=== PATIENT | female | born 1935 | race Caucasian/White ===

== ENCOUNTER 2020-02-05 18:04 | Emergency (ER) | payer MEDICARE, SELFPAY ==
[2020-02-05] VITALS (33 sets, daily range): BP systolic 110–167; BP diastolic 47–120; PULSE 67–86; RESP 12–31; TEMP 36.8; O2SAT 94–100
--- NOTE | ~2020-02-05 | CT_ITS ---
EXAMINATION: CT brain wo con DATE: 02/05/2020 19:01 INDICATION: Head injury TECHNIQUE: Computed tomography (CT) of the head was performed without intravenous contrast. The dose- length product was 605.33 mGy-cm. The mA was adjusted according to patient size. Iterative reconstruc tion technique was employed. COMPARISON: None FINDINGS: Generalized atrophy. There are scattered moderate periventricular and subcortical white mat ter changes, most likely related to small vessel ischemic disease (microangiopathy). No midline shift . Basilar cisterns are patent. There is intracranial atherosclerosis. Paranasal sinuses and mastoids are pneumatized. No depressed skull fractures. No acute intracranial hemorrhage or infarction. IMPRESSION: 1. No acute intracranial abnormality. 2: Chronic age-related findings. Reviewed, dictated and finalized at location A. ELLA FRAME MAKER
--- NOTE | ~2020-02-05 | CT_ITS ---
EXAMINATION: CT cervical spine wo con DATE: 02/05/2020 19:01 INDICATION: Neck pain after fall TECHNIQUE: Computed tomography (CT) of the cervical spine was performed without intravenous contrast. The dose-length product was 292.35 mGy-cm. Automated exposure control and iterative reconstruction t echnique were employed. COMPARISON: None FINDINGS: Normal cervical alignment. There is disc narrowing and endplate degenerative change at all cervical spine levels. Odontoid process within normal limits. There is moderate multilevel uncinate a nd facet hypertrophy. Lung apices are unremarkable. IMPRESSION: 1. No acute abnormality of the cervical spine. 2: Moderate-severe cervical spondylosis. Reviewed, dictated and finalized at location A. IFICATION OFFICER
--- NOTE | ~2020-02-05 | XR_ITS ---
XR chest 2V 02/05/2020 18:51 Indication: Syncope. Hypertension. Procedure: AP view of the chest Comparison: No prior studies for comparison. Findings: Heart size normal. Pacemaker leads are in expected position. No focal air space disease, pu lmonary edema, pleural effusion or suspected pneumothorax. Calcified granulomas right mid thorax. Impression: 1: No acute cardiopulmonary disease. Reviewed, dictated and finalized at location A. UNITY RELATIONS POLICE LIEUTENANT Impression: 1: No acute cardiopulmonary disease.
--- NOTE | 2020-02-05 18:08 | ECG_ITS ---
Measurements Intervals [place] Rate: 72 P: 121 NE: 214 QRS: -73 QRSD: 178 T: 71 QT: 474 QTc: 520 Interpretive Statements ELECTRONIC ATRIAL PACEMAKER ELECTRONIC VENTRICULAR PACEMAKER BASELINE ARTIFACT- I, II, AVR, AVL, AVF NO FURTHER INTERPRETATION IS POSSIBLE ATYPICAL ECG Electronically Signed On 02-06-2020 7:27:02 DINING ROOM BUSSER by Danny Peter D.O.
[2020-02-05 18:19] LABS: Basophils Percent Auto 0.7 % (0.2-1.2); Eosinophils Absolute Auto 0.3 K/mm3 (0-0.3); Hematocrit 44.6 % (37.0-47.0); Hemoglobin 14.8 g/dL (12.0-15.0); Immature Granulocyte Absolute 0.02 K/mm3 (0.00-0.031); Immature Granulocyte Percent A 0.5 % (0-0.5); Lymphocytes Absolute Auto 1.28 K/mm3 (0.9-3.2); Mean Corpuscular HGB Conc 33.2 g/dl (32-36); Mean Corpuscular Hemoglobin 31.2 pg (26-34); Mean Corpuscular Volume 94.1 fl (80-100); Mean Platelet Volume 10.4 fl (7.4-10.4); Monocytes Absolute Auto 0.4 K/mm3 (0.1-0.6); Monocytes Percent Auto 9.7 % (2.6-8.5); Neutrophils Absolute Auto 2.1 K/mm3 (1.3-6.7); Neutrophils Percent Auto 51.1 % (45.5-73.1); Platelet Count Result 176 k/mm3 (150-375); Red Blood Count 4.74 M/mm3 (4.2-5.4); Red Cell Distribution Width 14.2 % (11.5-14.5); White Blood Count 4.1 K/mm3 (4.5-10.0)
[2020-02-05 18:31] LABS: Anion Gap 6 mmol/L (8-16); Blood Urea Nitrogen 15 mg/dL (7-17); Calcium 9.9 mg/dL (8.4-10.2); Carbon Dioxide 30 mmol/L (22-30); Chloride 103 mmol/L (98-107); Estimated Glomerular Filt Rate 53; Glucose 142 mg/dL (65-105); Potassium 4.1 mmol/L (3.4-5.0); Sodium 139 mmol/L (137-145)
--- NOTE | 2020-02-05 18:31 | ED.FALL ---
HPI - Fall General Chief Complaint: Syncope Stated Complaint: SYNCOPE Time Seen by Provider: 02/05/20 18:12 Source: patient Mode of arrival: EMS Limitations: dementia History of Present Illness HPI Narrative: This is a 84 year old female that presents to the ER for a fall today from assisted living. Per facility another resident saw her eyes close and her slowly lower to the floor. Reports patient took a few minutes to get back to her baseline level of consciousness, but is now at her normal. Patient does not remember falling. Denies any complaints currently. Denies fever, vision changes, vomiting, chest pain, shortness of breath, numbness or weakness. Related Data Home Medications Medication Instructions Recorded Confirmed allopurinol 300 mg PO DAILY 02/05/20 02/05/20 carvedilol [Coreg] 6.25 mg PO Q12H 02/05/20 02/05/20 cholecalciferol (vitamin D3) 2,000 unit PO DAILY 02/05/20 02/05/20 [Vitamin D3] donepezil 10 mg PO HS 02/05/20 02/05/20 magnesium 400 mg PO DAILY 02/05/20 02/05/20 memantine [Namenda XR] 28 mg PO DAILY 02/05/20 02/05/20 simvastatin 40 mg PO DAILY 02/05/20 02/05/20 valsartan 160 mg PO DAILY 02/05/20 02/05/20 vitamin B complex [B Complex] 2 cap PO DAILY 02/05/20 02/05/20 Allergies Allergy/AdvReac Type Severity Reaction Status Date / Time No Known Allergies Allergy Verified 02/05/20 18:42 Review of Systems Review of Systems: Narrative: CONSTITUTIONAL: Denies fever EYES: Denies visual changes CARDIOVASCULAR: Denies chest pain RESPIRATORY: Denies cough or dyspnea. GASTROINTESTINAL: Denies abdominal pain, vomiting GENITOURINARY: Denies dysuria MUSCULOSKELETAL: Denies back pain, joint pain, or myalgia. NEUROLOGIC: Denies headache, numbness, or weakness. All systems reviewed & are unremarkable except as noted in HPI and below PMFSH Past Medical History Medical History (Updated 02/05/20 @ 22:57 by Kellie Barone PA-C) History of dementia History of hyperlipidemia History of hypertension Social History Social History Gender identity (if verbalized by the patient): Female Exam Narrative: Exam Narrative: GENERAL: Elderly, well-nourished, and in no acute distress. HEAD: Normocephalic, atraumatic. EYES: PERRLA and EOMI. ENT: Nares clear, no rhinorrhea or epistaxis. Mucous membranes moist. Oropharynx without tonsillar hypertrophy exudate or other lesions. Bilateral TMs pearly dewey non-bulging NECK: Supple. No adenopathy or masses. Tender to palpation of midline cervical spine CHEST: Clear to auscultation. No respiratory distress. No wheezes rales or rhonchi HEART: Regular rate and rhythm. No murmur heard. Normal peripheral pulses. ABDOMEN: Soft, nontender, nondistended, normal active bowel sounds. BACK: No midline spinal tenderness EXTREMITIES: Normal range of motion. No edema. SKIN: Warm, dry, no rash. NEURO: No focal deficits. Alert and oriented x3. CN II-XII grossly intact PSYCH: Normal mood and affect Course Vital Signs Vital signs: Vital Signs Temperature 98.2 F 02/05/20 18:02 Pulse Rate 70 02/05/20 18:02 Respiratory Rate 20 02/05/20 18:02 Blood Pressure 143/96 H 02/05/20 18:02 Pulse Oximetry 99 02/05/20 18:02 Temperature 98.2 F 02/05/20 18:02 Pulse Rate 70 02/05/20 21:19 Respiratory Rate 15 02/05/20 19:16 Blood Pressure 155/85 H 02/05/20 21:19 Pulse Oximetry 100 02/05/20 19:16 MDM - Fall MDM Narrative Medical decision making narrative: Patient presents the emergency department for possible syncopal episode from assisted living. Patient with history of dementia. Could not remember falling. Has had no complaints while in the ED. She is afebrile and nontoxic-appearing. Patient was orthostatic on arrival. This was relieved with fluid administration. Patient was able to ambulate to the bathroom without difficulty. CBC and metabolic panel without concerning findings. Troponin is negative. UA was without evidence of infection. Chest x-ray is
[2020-02-05 18:41] LABS: Creatine Kinase 41 U/L (30-135)
[2020-02-05 18:43] LABS: Troponin I < 0.012 ng/mL (0.000-0.034)
[2020-02-05] MEDS: SODIUM CHLORIDE 0.9% IV 1,000 ML 999 ML IV CONT (19:15)
[2020-02-05 19:47] LABS: Add Urine Microscopic? YES; Appearance Urine Clear (Clear); Bilirubin Urine Negative (Negative); Blood Urine Negative (Negative); Color Urine Yellow (Yellow); Glucose Urine UA Negative (Negative); Hyaline Casts Urine 15-19 /lpf; Ketones Urine Trace mg/dL (Negative); Leukocyte Esterase Ur Negative LEU/UL (Negative); Mucus Urine Heavy /lpf; Nitrate Urine Negative (Negative); Protein Urine 1+ mg/dL (Negative); RBC Urine 0-2 /hpf (0-2); Specific Grav Ur 1.017 (1.001-1.035); Squamous Epithelial Cell Urine Few /hpf (Few); Urobilinogen Urine Negative mg/dL (<2.0); WBC Urine 0-3 /hpf
--- NOTE | 2020-02-05 19:48 | PC.NURSE ---
Called [facility] spoke w/ sand mill operator taking care of pt. she states she has no idea what kind of pacemaker she has Transferred to the nurse taking care of her no answer
--- NOTE | 2020-02-05 21:00 | PC.NURSE ---
Attempted to interrogate pacemaker 3x no success. Pt. [id number] is going to facility to retrieve pacemaker identification card.
[2020-02-05] MEDS: SODIUM CHLORIDE 0.9% IV 500 ML 999 ML IV CONT (22:00)
== END 2020-02-05 23:26 ==
PROVIDERS: Physician Assistant; Emergency Provider Emergency Medicine
DX: I95.1 Orthostatic hypotension (principal); F03.90 Unspecified dementia, unspecified severity, without behavioral disturbance, psychotic disturbance, mood disturbance, and anxiety; E78.5 Hyperlipidemia, unspecified; I10 Essential (primary) hypertension; M47.812 Spondylosis without myelopathy or radiculopathy, cervical region; Z95.0 Presence of cardiac pacemaker
CPT/HCPCS: 36415; 51701; 70450; 71046; 72125; 80048; 81001; 82550; 84484; 85025; 93005; 96360; 96361; 99284; J7030; J7040

== ENCOUNTER 2020-02-15 21:30 | Emergency (ER) | payer MEDICARE, SELFPAY ==
--- NOTE | ~2020-02-15 | CT_ITS ---
EXAMINATION: CT brain wo con EXAM DATE: 02/15/2020 22:23 INDICATION: Confusion. TECHNIQUE: Spiral CT of the head was performed without contrast. Axial, coronal and sagittal images were reviewed. The dose-length product (DLP) for this examination was 605.33 mGy-cm. The exposure w as tailored according to patient size, and iterative reconstruction (ASIR) was used as additional dos e reduction technique. Comparison is made to prior examination from 02/05/2020. FINDINGS: There is no acute intraparenchymal hemorrhage. No evidence of intraparenchymal brain mass lesion. No evidence of acute infarction. Please note that initial head CT has limited sensitivity f or small or acute infarctions. There is moderate periventricular and subcortical hypodensity, nonspec ific but probably related to small vessel ischemic disease. There is moderate prominence of the sul ci and ventricles related to cerebral atrophy. There is intracranial carotid arteriosclerosis. The re are no extra-axial collections. There is no mass effect or midline shift. There is an old left i nferior orbital wall fracture. Soft tissue is unremarkable. The visualized sinuses and mastoid air c ells are well aerated. IMPRESSION: 1. No acute intracranial findings. 2. Chronic age related findings. Reviewed, dictated and finalized at location A. NGE MAKER HELPER
[2020-02-15 21:36] VITALS: BP 152/72; PULSE 70; RESP 20; TEMP 36.8; O2SAT 100
--- NOTE | 2020-02-15 21:42 | ED.AMS ---
HPI - Altered Mental Status General Chief Complaint: Altered Mental Status Stated Complaint: confused Time Seen by Provider: 02/15/20 21:41 Source: patient Mode of arrival: EMS Limitations: dementia History of Present Illness HPI narrative: Patient is an 84-year-old female with a history of Alzheimer's dementia who presents for evaluation of increased confusion. Per staff at the assisted living facility, she was more confused from baseline and they cannot reach any power of collections attorney for her, thus she was transported to our facility for evaluation. Patient is currently alert to person, place, can identify the month, but can identify the year or president. She is denying any complaints of headache, chest pain, abdominal pain. She denies any nausea or vomiting. She states she feels fine. She denies any urinary symptoms. No family present at the time of evaluation. Of note, patient does state that she lives at home at [facility]. She denies living in a care facility. Related Data Home Medications Medication Instructions Recorded Confirmed allopurinol 300 mg PO DAILY 02/05/20 02/05/20 carvedilol [Coreg] 6.25 mg PO Q12H 02/05/20 02/05/20 cholecalciferol (vitamin D3) 2,000 unit PO DAILY 02/05/20 02/05/20 [Vitamin D3] donepezil 10 mg PO HS 02/05/20 02/05/20 magnesium 400 mg PO DAILY 02/05/20 02/05/20 memantine [Namenda XR] 28 mg PO DAILY 02/05/20 02/05/20 simvastatin 40 mg PO DAILY 02/05/20 02/05/20 valsartan 160 mg PO DAILY 02/05/20 02/05/20 vitamin B complex [B Complex] 2 cap PO DAILY 02/05/20 02/05/20 Allergies Allergy/AdvReac Type Severity Reaction Status Date / Time No Known Allergies Allergy Verified 02/05/20 18:42 Review of Systems Review of Systems: Narrative: CONSTITUTIONAL: Denies fever CARDIOVASCULAR: Denies chest pain RESPIRATORY: Denies cough or dyspnea. GASTROINTESTINAL: Denies abdominal pain SKIN: Denies rash MUSCULOSKELETAL: Denies back pain NEUROLOGIC: Denies headache PMFSH Past Medical History Medical History History of dementia History of hyperlipidemia History of hypertension Social History Social History (Updated 02/15/20 @ 21:56 by Fanny Herring MD) Smoking status: Never smoker Alcohol intake: never Substance use: never Living arrangements: alone Gender identity (if verbalized by the patient): Female Exam Narrative: Exam Narrative: GENERAL: Awake, alert, conversant, elderly HEAD: Normocephalic, atraumatic. EYES: PERRLA and EOMI. ENT: Nares clear, no rhinorrhea or epistaxis. Mucous membranes moist. NECK: Supple. CHEST: No respiratory distress, breathing even and non labored HEART: Regular rate, sinus rhythm ABDOMEN:Non distended, non tender EXTREMITIES: Normal range of motion. No edema. SKIN: Warm, dry, no rash. NEURO:No focal deficits. Alert and oriented x2 Course Vital Signs Vital signs: Vital Signs Temperature 36.8 C 02/15/20 21:36 Pulse Rate 70 02/15/20 21:36 Respiratory Rate 20 02/15/20 21:36 Blood Pressure 152/72 H 02/15/20 21:36 Pulse Oximetry 100 02/15/20 21:36 Temperature 36.8 C 02/15/20 21:36 Pulse Rate 70 02/15/20 21:36 Respiratory Rate 20 02/15/20 21:36 Blood Pressure 152/72 H 02/15/20 21:36 Pulse Oximetry 100 02/15/20 21:36 MDM - Altered Mental Status MDM Narrative Medical decision making narrative: Patient presented awake and alert at baseline and per staff was confused at the time of their assessment which is what prompted them to have her transported via EMS. Initially patient family was not at bedside. Laboratory results are reassuring. No acute intracranial abnormality. Patient with straight catheterization that shows evidence of bacteria present in urine. May be consistent with UTI, will need to await cultures. This could cause transient altered mental status. Patient without signs of sepsis. No other concerning symptoms clinically.
[2020-02-15 22:17] LABS: Basophils Percent Auto 0.6 % (0.2-1.2); Eosinophils Absolute Auto 0.3 K/mm3 (0-0.3); Eosinophils Percent Auto 5.2 % (0-4.4); Hematocrit 43.4 % (37.0-47.0); Hemoglobin 14.7 g/dL (12.0-15.0); Immature Granulocyte Absolute 0.02 K/mm3 (0.00-0.031); Immature Granulocyte Percent A 0.4 % (0-0.5); Lymphocytes Absolute Auto 1.56 K/mm3 (0.9-3.2); Lymphocytes Percent Auto 30.2 % (18.3-44.2); Mean Corpuscular HGB Conc 33.9 g/dl (32-36); Mean Corpuscular Hemoglobin 31.5 pg (26-34); Mean Corpuscular Volume 93.1 fl (80-100); Mean Platelet Volume 10.1 fl (7.4-10.4); Monocytes Absolute Auto 0.4 K/mm3 (0.1-0.6); Monocytes Percent Auto 8.5 % (2.6-8.5); Neutrophils Absolute Auto 2.8 K/mm3 (1.3-6.7); Neutrophils Percent Auto 55.1 % (45.5-73.1); Platelet Count Result 187 k/mm3 (150-375); Red Blood Count 4.66 M/mm3 (4.2-5.4); Red Cell Distribution Width 14.6 % (11.5-14.5); White Blood Count 5.2 K/mm3 (4.5-10.0)
[2020-02-15 22:28] LABS: Anion Gap 9 mmol/L (8-16); Blood Urea Nitrogen 12 mg/dL (7-17); Calcium 10.1 mg/dL (8.4-10.2); Carbon Dioxide 24 mmol/L (22-30); Chloride 106 mmol/L (98-107); Estimated CRCL calculation 36 ml/min; Estimated Glomerular Filt Rate 60; Glucose 109 mg/dL (65-105); Potassium 3.5 mmol/L (3.4-5.0); Sodium 139 mmol/L (137-145)
[2020-02-16 00:04] LABS: Add Urine Microscopic? YES; Appearance Urine Cloudy (Clear); Bacteria Urine 4+ /hpf; Bilirubin Urine Negative (Negative); Blood Urine Negative (Negative); Color Urine Yellow (Yellow); Glucose Urine UA Negative (Negative); Ketones Urine Negative (Negative); Leukocyte Esterase Ur Trace LEU/UL (Negative); Mucus Urine Rare /lpf; Nitrate Urine Negative (Negative); Protein Urine Negative (Negative); Specific Grav Ur 1.006 (1.001-1.035); Squamous Epithelial Cell Urine Many /hpf (Few); Urobilinogen Urine Negative mg/dL (<2.0)
[2020-02-16] MEDS: NITROFURANTOIN MONOHYD MACROCR 100 MG CAP PO (00:45)
[2020-02-16 00:46] VITALS: BP 169/89; PULSE 70; RESP 18; O2SAT 97
== END 2020-02-16 01:21 ==
PROVIDERS: Emergency Provider Emergency Medicine
DX: R82.71 Bacteriuria (principal); G30.9 Alzheimer's disease, unspecified; F02.80 Dementia in other diseases classified elsewhere, unspecified severity, without behavioral disturbance, psychotic disturbance, mood disturbance, and anxiety; E78.5 Hyperlipidemia, unspecified; I10 Essential (primary) hypertension
CPT/HCPCS: 36415; 70450; 80048; 81001; 85025; 99284; A9270

== ENCOUNTER 2020-02-29 17:40 | Emergency (ER) | payer MEDICARE, SELFPAY ==
--- NOTE | ~2020-02-29 | XR_ITS ---
EXAMINATION: XR chest 2V DATE: 02/29/2020 18:33 INDICATION: Weakness, history of hypertension TECHNIQUE: AP and lateral views of the chest are obtained. COMPARISON: 02/05/2020 FINDINGS: The lungs are free of acute opacities. A calcified nodule in the right lung bases consisten t with old granulomatous disease. There is no pleural effusion or pneumothorax. The cardiomediastinal silhouette is normal. There is severe thoracic spondylosis. A dual-lead cardiac pacemaker of the lef t chest wall ends with leads in expected locations. IMPRESSION: 1. No acute cardiopulmonary abnormality. Reviewed, dictated and finalized at location A. YARD WORKER
[2020-02-29 17:40] VITALS: BP 154/78; PULSE 69; RESP 12; TEMP 36.6; O2SAT 99
--- NOTE | 2020-02-29 17:48 | ECG_ITS ---
Measurements Intervals [place] Rate: 70 P: 154 [place]: 229 QRS: -70 QRSD: 161 T: 76 QT: 464 QTc: 501 Interpretive Statements ELECTRONIC ATRIAL PACEMAKER ELECTRONIC VENTRICULAR PACEMAKER NO FURTHER INTERPRETATION IS POSSIBLE ATYPICAL ECG Electronically Signed On 02-29-2020 21:39:00 SPRAY WORKER by Danny Peter D.O.
[2020-02-29 18:18] LABS: Basophils Percent Auto 0.4 % (0.2-1.2); Eosinophils Absolute Auto 0.2 K/mm3 (0-0.3); Eosinophils Percent Auto 4.3 % (0-4.4); Hematocrit 42.2 % (37.0-47.0); Immature Granulocyte Absolute 0.02 K/mm3 (0.00-0.031); Immature Granulocyte Percent A 0.4 % (0-0.5); Lymphocytes Absolute Auto 1.28 K/mm3 (0.9-3.2); Lymphocytes Percent Auto 22.7 % (18.3-44.2); Mean Corpuscular HGB Conc 33.2 g/dl (32-36); Mean Corpuscular Hemoglobin 31.3 pg (26-34); Mean Corpuscular Volume 94.4 fl (80-100); Mean Platelet Volume 10.1 fl (7.4-10.4); Monocytes Absolute Auto 0.4 K/mm3 (0.1-0.6); Monocytes Percent Auto 7.4 % (2.6-8.5); Neutrophils Absolute Auto 3.7 K/mm3 (1.3-6.7); Neutrophils Percent Auto 64.8 % (45.5-73.1); Platelet Count Result 186 k/mm3 (150-375); Red Blood Count 4.47 M/mm3 (4.2-5.4); Red Cell Distribution Width 14.7 % (11.5-14.5); White Blood Count 5.6 K/mm3 (4.5-10.0)
--- NOTE | 2020-02-29 18:38 | ED.GENADULT ---
HPI - General Adult General Chief complaint: Weakness Stated complaint: not feeling well Time Seen by Provider: 02/29/20 17:57 Source: patient and EMS Mode of arrival: EMS Limitations: dementia History of Present Illness HPI narrative: Patient is 84 years old white female came from group home with a chief complaint of not feeling well. Currently patient denying any symptoms. She is telling me that she is hungry and would like to eat. Patient denies any fever, chills, nausea, vomiting, chest pain, shortness of breath, abdominal pain, coughing, back pain. Patient does not know why she is here Related Data Home Medications Medication Instructions Recorded Confirmed allopurinol 300 mg PO DAILY 02/05/20 02/05/20 carvedilol [Coreg] 6.25 mg PO Q12H 02/05/20 02/05/20 cholecalciferol (vitamin D3) 2,000 unit PO DAILY 02/05/20 02/05/20 [Vitamin D3] donepezil 10 mg PO HS 02/05/20 02/05/20 magnesium 400 mg PO DAILY 02/05/20 02/05/20 memantine [Namenda XR] 28 mg PO DAILY 02/05/20 02/05/20 simvastatin 40 mg PO DAILY 02/05/20 02/05/20 valsartan 160 mg PO DAILY 02/05/20 02/05/20 vitamin B complex [B Complex] 2 cap PO DAILY 02/05/20 02/05/20 Allergies Allergy/AdvReac Type Severity Reaction Status Date / Time No Known Allergies Allergy Verified 02/05/20 18:42 Review of Systems Review of Systems: ROS unobtainable: Yes unobtainable due to mental status PMFSH Past Medical History Medical History History of dementia History of hyperlipidemia History of hypertension Social History Social History Smoking status: Never smoker Alcohol intake: never Substance use: never Gender identity (if verbalized by the patient): Female Exam Narrative: Exam Narrative: General appearance: Well-developed, well-nourished, looks comfortable, not in any pain or distress Skin: Normal color Head: Normocephalic, nontraumatic Eyes: Clear conjunctiva ENT: Oropharynx normal, ears normal, nose normal Neck: Supple, nontender Chest and respiratory: Airway patent, no respiratory distress, no accessory muscle use Heart: Regular rate/rhythm Abdomen: Soft, nontender, no organomegaly, quiet bowel sounds Vascular: Normal peripheral pulses, normal capillary refill. Musculoskeletal: Normal range of motion, nontender back Neurologic: Alert and oriented to her name only. Course Course Emergency Course: Stable Vital Signs Vital signs: Vital Signs Temperature 36.6 C 02/29/20 17:40 Pulse Rate 69 02/29/20 17:40 Respiratory Rate 12 02/29/20 17:40 Blood Pressure 154/78 H 02/29/20 17:40 Pulse Oximetry 99 02/29/20 17:40 Temperature 36.6 C 02/29/20 17:40 Pulse Rate 68 02/29/20 19:54 Respiratory Rate 16 02/29/20 19:54 Blood Pressure 149/81 H 02/29/20 19:54 Pulse Oximetry 97 02/29/20 19:54 Medical Decision Making MDM Narrative Medical decision making narrative: Patient presented to the ED with not feeling well. Labs, UA, chest x-ray, ordered. Further plan to follow Differential Diagnosis Differential Diagnosis: Urinary tract infection, electrolyte imbalance, coronary artery disease, pneumonia Vital Signs Vital Signs: Vital Signs Temperature 36.6 C 02/29/20 17:40 Pulse Rate 69 02/29/20 17:40 Respiratory Rate 12 02/29/20 17:40 Blood Pressure 154/78 H 02/29/20 17:40 Pulse Oximetry 99 02/29/20 17:40 Temperature 36.6 C 02/29/20 17:40 Pulse Rate 68 02/29/20 19:54 Respiratory Rate 16 02/29/20 19:54 Blood Pressure 149/81 H 02/29/20 19:54 Pulse Oximetry 97 02/29/20 19:54 Lab Data Result diagrams:
[2020-02-29 19:02] LABS: Alanine Aminotransferase 8 U/L (4-35); Albumin Level 3.8 g/dL (3.5-5.1); Alkaline Phosphatase 65 U/L (38-126); Anion Gap 5 mmol/L (8-16); Aspartate Amino Transferase 19 U/L (14-36); Bilirubin,Total 0.7 mg/dL (0.2-1.3); Blood Urea Nitrogen 20 mg/dL (7-17); Calcium 9.7 mg/dL (8.4-10.2); Carbon Dioxide 29 mmol/L (22-30); Chloride 103 mmol/L (98-107); Estimated CRCL calculation 42 ml/min; Estimated Glomerular Filt Rate 60; Glucose 137 mg/dL (65-105); Sodium 137 mmol/L (137-145)
[2020-02-29 19:13] LABS: Add Urine Microscopic? YES; Appearance Urine Cloudy (Clear); Bilirubin Urine Negative (Negative); Blood Urine Negative (Negative); Color Urine Yellow (Yellow); Glucose Urine UA Negative (Negative); Ketones Urine Trace mg/dL (Negative); Leukocyte Esterase Ur Negative LEU/UL (Negative); Mucus Urine Heavy /lpf; Nitrate Urine Negative (Negative); Protein Urine 1+ mg/dL (Negative); Specific Grav Ur 1.026 (1.001-1.035); Squamous Epithelial Cell Urine Moderate /hpf (Few); Urobilinogen Urine Negative mg/dL (<2.0); WBC Urine 0-3 /hpf
[2020-02-29 19:28] LABS: Troponin I < 0.012 ng/mL (0.000-0.034)
[2020-02-29 19:54] VITALS: BP 149/81; PULSE 68; RESP 16; O2SAT 97
[2020-02-29 20:15] VITALS: BP 154/93; PULSE 68; RESP 16; TEMP 36.8; O2SAT 97
== END 2020-02-29 20:16 ==
PROVIDERS: Emergency Medicine; Emergency Provider Emergency Medicine; PCP Internal Medicine
DX: R53.1 Weakness (principal); F03.90 Unspecified dementia, unspecified severity, without behavioral disturbance, psychotic disturbance, mood disturbance, and anxiety; E78.5 Hyperlipidemia, unspecified; I10 Essential (primary) hypertension; Z95.0 Presence of cardiac pacemaker
CPT/HCPCS: 36415; 51701; 71046; 80053; 81001; 84484; 85025; 93005; 99284

== ENCOUNTER 2020-03-25 11:16 | Inpatient (IN) | payer MEDICARE, SELFPAY ==
[2020-03-25] VITALS (10 sets, daily range): BP systolic 123–159; BP diastolic 73–101; PULSE 70–99; RESP 16–20; TEMP 36.1–36.2; O2SAT 97–100
--- NOTE | ~2020-03-25 | XR_ITS ---
EXAMINATION: XR barium swallow modified DATE: 03/26/2020 10:39 INDICATION: Dysphagia TECHNIQUE: The patient was given barium-containing material of multiple consistencies to swallow by alen swain speech pathologist while I performed fluoroscopy. Dose-area product was 35.137 Gy-cm2. 3.9 minutes fluoroscopy time FINDINGS: Oral Stage: Within functional limits Pharyngeal Phase: Trace laryngeal penetration with thin liquids Cervical/Esophageal Stage: Within functional limits IMPRESSION: Modified esophagram findings as above. Please refer to the speech therapy report [facility]. Reviewed, dictated and finalized at [facility]. Reviewed, dictated and finalized at location [facility]. [employer] MEDICAL SERGEANT IMPRESSION: Modified esophagram findings as above. Please refer to the speech t herapy report for specific recommendations.
--- NOTE | ~2020-03-25 | XR_ITS ---
EXAMINATION: XR chest 2V 03/25/2020 11:53 INDICATION: Weakness. PROCEDURE: 2 view chest COMPARISON: 02/29/2020 FINDINGS: The lungs are clear. The cardiomediastinal silhouette is within normal limits. There are no pleural effusions. There is no pneumothorax suspected. There are pacemaker leads. There are calc ified granulomas. IMPRESSION: 1: NO ACUTE CARDIOPULMONARY DISEASE. Reviewed, dictated and finalized at location [facility]. CTOR OF PERIOPERATIVE SERVICES
--- NOTE | ~2020-03-25 | CT_ITS ---
EXAMINATION: CT brain wo con INDICATION: Altered mental status COMPARISON: 02/15/2020 TECHNIQUE: Standard unenhanced head CT. The dose-length product (DLP) was 605.33 mGy-cm. The mA was a djusted according to patient size. Iterative reconstruction technique was employed. FINDINGS: There is no acute intraparenchymal hemorrhage. No evidence of mass lesion. No evidence of a cute infarction. There is moderate periventricular and subcortical hypodensity probably related to sm all vessel ischemic disease. There is moderate prominence of the sulci and ventricles related to cere bral atrophy. Intracranial calcified cerebral atherosclerosis is noted. There are no extra-axial daysi ections. There is no mass effect or midline shift. The orbits and soft tissues are unremarkable. The visualized sinuses and mastoid air cells are well aerated. IMPRESSION: 1. No acute intracranial abnormality. 2. Age related findings. Reviewed, dictated and finalized at location A. SOFTWARE QA ENGINEER
--- NOTE | 2020-03-25 11:39 | ECG_ITS ---
Measurements Intervals [place] Rate: 95 P: 251 [place]: 65 QRS: 61 QRSD: 101 T: 246 QT: 336 QTc: 424 Interpretive Statements ACCLERATED JUNCTIONAL RHYTHM ANTEROSEPTAL INFARCT, AGE INDETERMINATE ST-T WAVE ABNORMALITY IN ANTEROLAT/INF LEADS- CONSIDER ISCHEMIA BASELINE ARTIFACT- I, II, III, AVR, AVL, AVF, V5 ABNORMAL ECG Electronically Signed On 03-25-2020 13:02:57 TANNING WHEEL OPERATOR by Danny Peter D.O.
[2020-03-25 12:14] LABS: Basophils Percent Auto 0.1 % (0.2-1.2); Hematocrit 46.1 % (37.0-47.0); Hemoglobin 16.2 g/dL (12.0-15.0); Immature Granulocyte Absolute 0.04 K/mm3 (0.00-0.031); Immature Granulocyte Percent A 0.3 % (0-0.5); Lymphocytes Absolute Auto 1.56 K/mm3 (0.9-3.2); Lymphocytes Percent Auto 12.9 % (18.3-44.2); Mean Corpuscular HGB Conc 35.1 g/dl (32-36); Mean Corpuscular Hemoglobin 31.5 pg (26-34); Mean Corpuscular Volume 89.7 fl (80-100); Mean Platelet Volume 10.1 fl (7.4-10.4); Monocytes Absolute Auto 0.7 K/mm3 (0.1-0.6); Neutrophils Absolute Auto 9.8 K/mm3 (1.3-6.7); Neutrophils Percent Auto 80.7 % (45.5-73.1); Platelet Count Result 287 k/mm3 (150-375); Red Blood Count 5.14 M/mm3 (4.2-5.4); Red Cell Distribution Width 14.6 % (11.5-14.5); White Blood Count 12.1 K/mm3 (4.5-10.0)
[2020-03-25 12:27] LABS: Alanine Aminotransferase 16 U/L (4-35); Albumin Level 4.2 g/dL (3.5-5.1); Alkaline Phosphatase 83 U/L (38-126); Anion Gap 19 mmol/L (8-16); Aspartate Amino Transferase 39 U/L (14-36); Bilirubin,Total 0.9 mg/dL (0.2-1.3); Blood Urea Nitrogen 34 mg/dL (7-17); Calcium 10.1 mg/dL (8.4-10.2); Carbon Dioxide 20 mmol/L (22-30); Chloride 99 mmol/L (98-107); Estimated CRCL calculation 25 ml/min; Estimated Glomerular Filt Rate 47; Glucose 177 mg/dL (65-105); Potassium 3.1 mmol/L (3.4-5.0); Sodium 138 mmol/L (137-145)
--- NOTE | 2020-03-25 12:47 | PC.NURSE ---
Called [facility], added on [place] [id number]
[2020-03-25 13:02] LABS: Magnesium 2.1 mg/dL (1.6-2.3)
[2020-03-25] MEDS: POTASSIUM CHLORIDE 20 MEQ PACKET (FOR LIQUID) 40 MEQ PO (13:03)
[2020-03-25] MEDS: LACTATED RINGERS 1,000 ML 999 ML IV CONT (13:03)
--- NOTE | 2020-03-25 13:28 | PC.NURSE ---
Dr. Sheth aware unable to obtain urine specimen. IVFluids infusing.
--- NOTE | 2020-03-25 14:12 | ED.WEAKNESS ---
HPI - Weakness General Chief complaint: Weakness Stated complaint: Weakness, Not Eating or Drinking Time Seen by Provider: 03/25/20 12:08 Source: RN notes reviewed Mode of arrival: EMS Limitations: altered mental status and dementia History of Present Illness HPI Narrative: An 84-year-old woman is sent into the emergency department with complaints of weakness and altered mental status. EMS noted to the nursing staff that the long term staff stated that the patient has not been eating or drinking for the past week or so. This is uncharacteristic of her. Patient is pleasantly confused and unable to provide any meaningful history. Related Data Home Medications Medication Instructions Recorded Confirmed allopurinol 300 mg PO DAILY 02/05/20 03/25/20 carvedilol [Coreg] 6.25 mg PO Q12H 02/05/20 03/25/20 cholecalciferol (vitamin D3) 2,000 unit PO DAILY 02/05/20 03/25/20 [Vitamin D3] donepezil 10 mg PO HS 02/05/20 03/25/20 magnesium 400 mg PO DAILY 02/05/20 03/25/20 memantine [Namenda XR] 28 mg PO DAILY 02/05/20 03/25/20 simvastatin 40 mg PO DAILY 02/05/20 03/25/20 valsartan 160 mg PO DAILY 02/05/20 03/25/20 vitamin B complex [B Complex] 2 cap PO DAILY 02/05/20 03/25/20 Allergies Allergy/AdvReac Type Severity Reaction Status Date / Time No Known Allergies Allergy Verified 03/25/20 11:35 Review of Systems Review of Systems: ROS unobtainable: Yes unobtainable due to mental status PMFSH Past Medical History Medical History History of dementia History of hyperlipidemia History of hypertension Social History Social History Smoking status: Never smoker Alcohol intake: never Substance use: never Gender identity (if verbalized by the patient): Female Exam Narrative: Exam Narrative: GENERAL: Well-appearing, well-nourished, and in no acute distress. HEAD: Normocephalic, atraumatic. EYES: PERRLA and EOMI. ENT: Nares clear, no rhinorrhea or epistaxis. Mucous membranes moist. NECK: Supple. No adenopathy or masses. No carotid bruits or JVD CHEST: Clear to auscultation. No respiratory distress. No wheezes rales or rhonchi HEART: Regular rate and rhythm. No murmur heard. Normal peripheral pulses. ABDOMEN: Soft, nontender, nondistended, normal active bowel sounds. EXTREMITIES: Normal range of motion. No edema. SKIN: Warm, dry, no rash. NEURO: Demented, pleasantly confused. PSYCH: Normal mood and affect. Course Reevaluation(s) Reevaluation #1: Patient still very pleasantly confused and weak. She is apparently staying at an independent living center. At this time I do not feel that she would be safe to go back with these issues. Patient will need to be admitted for further evaluation and work-up. Consultations Consultation #1: Spoke with CHARLOTTE Mina for hospitalist service. All pertinent details of the patient's presentation were discussed. She agrees to accept for further management. Time: 15:13 Vital Signs Vital signs: Vital Signs Temperature 36.2 C L 03/25/20 11:24 Pulse Rate 97 03/25/20 11:24 Respiratory Rate 16 03/25/20 11:24 Blood Pressure 137/96 H 03/25/20 11:24 Pulse Oximetry 98 03/25/20 11:24 Temperature 36.2 C L 03/25/20 11:24 Pulse Rate 94 03/25/20 14:01 Respiratory Rate 18 03/25/20 14:01 Blood Pressure 123/73 03/25/20 14:01 Pulse Oximetry 99 03/25/20 14:01 MDM - Weakness MDM Narrative Medical decision making narrative: In brief this is an 84-year-old female who came in from an assisted living facility with reports of change in mental status and increased weakness. Her son brought her in by private vehicle. After work-up it was found the patient has a case of acute cystitis likely contributing to her symptoms. I discussed with the son if he felt she was safe for return to the independent living center. He stated currently he did not. We will have PT/OT
[2020-03-25 14:24] LABS: Add Urine Microscopic? YES; Appearance Urine Cloudy (Clear); Bacteria Urine 2+ /hpf; Bilirubin Urine 1+ (Negative); Blood Urine 1+ (Negative); Color Urine Amber (Yellow); Glucose Urine UA 1+ mg/dL (Negative); Hyaline Casts Urine 50+ /lpf; Ketones Urine 1+ mg/dL (Negative); Leukocyte Esterase Ur 3+ LEU/UL (Negative); Mucus Urine Heavy /lpf; Nitrate Urine Negative (Negative); Protein Urine 3+ mg/dL (Negative); Specific Grav Ur 1.025 (1.001-1.035); Squamous Epithelial Cell Urine Moderate /hpf (Few); Urobilinogen Urine Negative mg/dL (<2.0); WBC Clumps Urine Present /HPF; WBC Urine >75 /hpf
--- NOTE | 2020-03-25 17:52 | PC.NURSE ---
This patient, Skye Yao, was admitted to Medical Room 256-01. Patient/family oriented to hospital policies and general routines including ID bracelet, bed and alarms, visiting hours, pain management, procedures, bathroom and other care routines, personal items, smoking policy, room service/diet, and visiting hours. Information on how to activate the Rapid Response Team has been discussed. Patient/Family are encouraged to report perceived risks to care and to ask questions if they do not understand what they are told or what they should do.
--- NOTE | 2020-03-25 18:51 | ECG_ITS ---
Measurements Intervals [place] Rate: 95 P: [place]: 0 QRS: 59 QRSD: 96 T: 243 QT: 433 QTc: 546 Interpretive Statements SINUS OR ECTOPIC ATRIAL RHYTHM WITH FIRST DEGREE AV BLOCK ANTEROSEPTAL INFARCT, AGE INDETERMINATE ST-T WAVE ABNORMALITY IN ANTEROLAT/INF LEADS- CONSIDER ISCHEMIA ABNORMAL ECG Electronically Signed On 03-26-2020 10:38:52 TITLE ASSISTANT by Danny Peter D.O.
--- NOTE | 2020-03-25 19:25 | PM.IMHP ---
H&P: HPI History of Present Illness Date/Time: 03/25/20 19:25 Chief Complaint: generalized weakness+ Narrative: This is a demented 84 year old female who is known to reside at assisted living and brought to the hospital by her son today secondary to generalized weakness and poor PO intake recently. Apparently the patient has not been getting out of bed and not eating for almost a week now. Her son believes that she has lost quite a bit of weight recently and has not been taking her home medications as prescribed because of her poor PO intake. The patient is normally only oriented to herself and doesn't complain of much. Her family has not been able to spend much time with her because of COVID restrictions at the assisted living. They have not recently reported any fevers, coughing, nausea, vomiting, diarrhea or other symptoms. On my encounter with the patient matt she is only complaining of feeling tired and denies any pain, dysuria, or other symptoms. She was evaluated in the ER [facility] and found to incidentally have an elevated troponin of 2.90. Urinalysis was grossly abnormal and the patient was started on IV antibiotics. EKG was obtained which demonstrated T wave inversions in the inferior-lateral leads and Q waves in the anterior leads. She is known to have a pacemaker for an unknown reason but her son denies that the patient has any history of coronary artery disease. Review of Systems Review of Systems: All systems reviewed & are unremarkable except as noted in HPI and below PMFSH Past Medical History Medical History History of dementia History of hyperlipidemia History of hypertension Family History Family History Other Unknown family medical history Social History Social History Smoking status: Never smoker Alcohol intake: unknown Substance use: never Substance use type: does not use Gender identity (if verbalized by the patient): Female Sexual Orientation (if Verbalized by the Patient): Straight or Heterosexual Spiritual care concerns: No Meds Home Medications and Allergies Home Medications Medication Instructions Recorded Confirmed Type allopurinol 300 mg PO DAILY 02/05/20 03/25/20 History carvedilol [Coreg] 6.25 mg PO Q12H 02/05/20 03/25/20 History cholecalciferol (vitamin D3) 2,000 unit PO DAILY 02/05/20 03/25/20 History [Vitamin D3] donepezil 10 mg PO HS 02/05/20 03/25/20 History magnesium 400 mg PO DAILY 02/05/20 03/25/20 History memantine [Namenda XR] 28 mg PO DAILY 02/05/20 03/25/20 History simvastatin 40 mg PO DAILY 02/05/20 03/25/20 History valsartan 160 mg PO DAILY 02/05/20 03/25/20 History vitamin B complex [B Complex] 2 cap PO DAILY 02/05/20 03/25/20 History albuterol sulfate [ProAir HFA] 2 puff INHALATION QID PRN 03/25/20 03/25/20 History Allergies Allergy/AdvReac Type Severity Reaction Status Date / Time No Known Allergies Allergy Verified 03/25/20 11:35 Vital Signs Vital Signs - 24 hr 03/25/20 11:24 03/25/20 11:37 03/25/20 12:29 Temperature 36.2 C L Pulse Rate 97 94 99 Respiratory Rate 16 16 Blood Pressure 137/96 H 144/93 H Pulse Oximetry 98 97 03/25/20 13:33 03/25/20 14:01 03/25/20 17:49 Temperature 36.2 C L Pulse Rate 98 94 96 Respiratory Rate 18 18 20 Blood Pressure 142/101 H 123/73 150/74 H Pulse Oximetry 97 99 99 Exam Const: General: cooperative, no acute distress, alert and awake Nutritional Appearance: well nourished Orientation/consciousness: oriented to person and Other orientation findings (demented) HENMT: Head: normal to inspection General nose exam: Normal external nose present Face and sinus: normal facial exam Mouth: Yes Normal oral and palatal mucosa present and Yes oropharynx normal Eyes: Pupils: Equal, round and reactive pupils present EOM: E
--- NOTE | 2020-03-25 20:17 | PC.NURSE ---
This patient, Skye Yao, was transferred to [facility] on 03/25/20 at 1940 from [facility]. Belongings received with patient. Patient oriented to surroundings and call light.
[2020-03-25] MEDS: HEPARIN SODIUM 5,000 UNITS/ML VIAL 3000 UNITS IV PUSH (20:38)
[2020-03-25] MEDS: HEPARIN SOD/D5W 100 UNITS/ML 25,000 UNITS/250 ML BAG 6 UNITS IV CONT (20:38)
[2020-03-25] MEDS: ASPIRIN 81 MG CHEWABLE TABLET 324 MG PO (20:38)
[2020-03-25] MEDS: DONEPEZIL HCL 10 MG TABLET PO (21:14)
[2020-03-25] MEDS: carvediloL 6.25 MG TABLET PO (21:14)
[2020-03-25 22:23] LABS: INR 1.2; Prothrombin Time 15.8 Seconds (11.1-14.7)
[2020-03-25 23:26] LABS: Partial Thromboplastin Time 191.5 SECONDS (22.3-36.8)
--- NOTE | 2020-03-25 23:28 | PC.NURSE ---
PT, PTT drawn at 2148 were drawn one hour after a 3000 unit bolus of Heparin and drip was started. Will repeat PTT at 0230 and continue drip at 600 units per hour.
[2020-03-26] VITALS (17 sets, daily range): BP systolic 116–160; BP diastolic 75–88; PULSE 70–88; RESP 16–24; TEMP 35.7–36.1; O2SAT 97–100
[2020-03-26 02:50] LABS: Basophils Percent Auto 0.1 % (0.2-1.2); Hematocrit 42.2 % (37.0-47.0); Hemoglobin 14.8 g/dL (12.0-15.0); Immature Granulocyte Absolute 0.08 K/mm3 (0.00-0.031); Immature Granulocyte Percent A 0.7 % (0-0.5); Lymphocytes Absolute Auto 1.63 K/mm3 (0.9-3.2); Lymphocytes Percent Auto 14.3 % (18.3-44.2); Mean Corpuscular HGB Conc 35.1 g/dl (32-36); Mean Corpuscular Hemoglobin 31.8 pg (26-34); Mean Corpuscular Volume 90.6 fl (80-100); Mean Platelet Volume 9.9 fl (7.4-10.4); Monocytes Absolute Auto 1.2 K/mm3 (0.1-0.6); Monocytes Percent Auto 10.7 % (2.6-8.5); Neutrophils Absolute Auto 8.4 K/mm3 (1.3-6.7); Neutrophils Percent Auto 74.2 % (45.5-73.1); Nucleated Red Blood Cells Perc 0.2 % (0.0-0.2); Platelet Count Result 254 k/mm3 (150-375); Red Blood Count 4.66 M/mm3 (4.2-5.4); Red Cell Distribution Width 14.7 % (11.5-14.5); White Blood Count 11.4 K/mm3 (4.5-10.0)
[2020-03-26 03:07] LABS: Partial Thromboplastin Time 139.7 SECONDS (22.3-36.8)
[2020-03-26 03:14] LABS: Anion Gap 8 mmol/L (8-16); Blood Urea Nitrogen 41 mg/dL (7-17); Carbon Dioxide 25 mmol/L (22-30); Chloride 101 mmol/L (98-107); Cholesterol 176 mg/dL (0-200); Estimated CRCL calculation 30 ml/min; Estimated Glomerular Filt Rate 60; Glucose 143 mg/dL (65-105); HDL Direct 40 mg/dL; Potassium 3.6 mmol/L (3.4-5.0); Sodium 134 mmol/L (137-145); Triglycerides 119 mg/dL (<150)
[2020-03-26 03:25] LABS: LDL Cholesterol Direct 117 mg/dL
[2020-03-26 04:04] LABS: Hemoglobin A1C 5.4 % (<5.7)
[2020-03-26] MEDS: VALSARTAN 160 MG TABLET PO (11:08)
[2020-03-26] MEDS: SIMVASTATIN 20 MG TABLET 40 MG PO (11:09)
[2020-03-26] MEDS: MAGNESIUM OXIDE 400 MG TABLET PO (11:09)
[2020-03-26] MEDS: carvediloL 6.25 MG TABLET PO ×2 (11:09→20:42)
[2020-03-26] MEDS: MEMANTINE HCL XR 28 MG CAP PO (11:23)
--- NOTE | 2020-03-26 11:25 | PM.CNCAR ---
Assessment and Plan Additional Plan 84-year-old lady with: EKG and biomarker evidence of recent myocardial infarction probably of the anterior wall. She is completely asymptomatic and does not recall having any recent chest pain almost certainly because of dementia and no short-term memory. She is on appropriate medical regimen consisting of aspirin beta-taylor ARB and statin. Echocardiogram has been ordered to verify wall motion abnormalities and ejection fraction. Based on those results I will consider if I need to adjust any of her medications. This lady is not a candidate for invasive coronary evaluation in my opinion based on her asymptomatic status and dementia And the fact that this appears to be a completed infarction which probably occurred sometime in the last couple of weeks based on the troponin data. Anticipate very conservative approach to treating this. Angel Gonzalez MD [facility] History of Present Illness History of Present Illness Consult date/time: 03/26/20 11:25 Reason For Visit: Acute delirium Narrative: This is a pleasantly demented 84-year-old lady who I am seeing at the request of the hospitalist because of concern regarding a recent myocardial infarction. The patient has no cardiac symptoms no complaints and no recollection of any recent chest pain event. She resides in a skilled care facility of some kind and was brought to the hospital yesterday at the family's request because of weakness poor p.o. intake in both fluid fluid and meals for about a week or more and they were concerned about her health for those reasons. The patient is very pleasant alert and responsive in the IMU but she is completely unaware of where she is and why she was brought to the hospital last evening. When specifically asked if she can recall having any recent chest pain she answers negative. She does recall that she has a pacemaker that was placed by a physician elsewhere. She can't tell me anything about the device or why it was implanted. There is a note in the chart that someone has identified this as a [employer] pacemaker device. When she was in the emergency department her evaluation consisted of an electrocardiogram which demonstrates a sinus mechanism and findings that are consistent with a previous anterior wall infarction. There are previous EKGs in the chart for comparison which demonstrate electronic pacing. There are no previous EKGs were the ventricular rhythm is intrinsic/non paced. Troponin was of course checked in the emergency room it was elevated at 2.9 and on the 3rd sample is slowly declining at 2.2. In this setting I am seeing the patient in consultation and the rest of the history of course is obtained from chart review as she is not capable of providing any other history. Her medical regimen in the skilled care facility consists of carvedilol, valsartan and simvastatin all of which has been continued she also has received aspirin. An echocardiogram has been requested which has yet to be performed. Review of Systems Review of Systems: ROS unobtainable: Yes unobtainable due to mental status PMFSH Past Medical History Medical History History of dementia History of hyperlipidemia History of hypertension Family History Family History Other Unknown family medical history Social History Social History Smoking status: Never smoker Alcohol intake: unknown Substance use: never Substance use type: does not use Gender identity (if verbalized by the patient): Female Sexual Orientation (if Verbalized by the Patient): Straight or Heterosexual Spiritual care concerns: No Meds Home Medications and Allergies Home Medications Medication Instructions Recorded Confirmed Type allopurinol 300 mg PO DAILY 02/05/20 03/25/20 History clau
[2020-03-26 11:34] LABS: Partial Thromboplastin Time 31.6 SECONDS (22.3-36.8)
--- NOTE | 2020-03-26 14:01 | PM.IMPN ---
Progress Note: A&P Assessment and Plan (1) Generalized weakness: Code(s): R53.1 - Weakness Status: Acute Assessment and Plan: The patient has been placed in observation status. (2) Appetite loss: Code(s): R63.0 - Anorexia Status: Acute Assessment and Plan: Pt passed swallow study (3) NSTEMI (non-ST elevated myocardial infarction): Code(s): I21.4 - Non-ST elevation (NSTEMI) myocardial infarction Status: Acute Assessment and Plan: Patient has evidence of NSTEMI with elevated troponins and abnormal EKG findings with Q-waves in anterior leads. Pt seen by cardiology, conservative approach, medications were adjusted. (4) Abnormal urinalysis: Code(s): R82.90 - Unspecified abnormal findings in urine Status: Acute Assessment and Plan: Awaiting UC, continue IV antibiotics for now. (5) Abnormal glucose: Code(s): R73.09 - Other abnormal glucose Status: Acute Assessment and Plan: Check hemoglobin A1c. (6) Leukocytosis: Qualifiers: Leukocytosis type: unspecified Qualified Code(s): D72.829 - Elevated white blood cell count, unspecified Code(s): D72.829 - Elevated white blood cell count, unspecified Status: Acute Assessment and Plan: Leukocytosis may be secondary to urinary tract infection versus sterile inflammation from NSTEMI. Monitor CBCD. (7) Hypokalemia: Code(s): E87.6 - Hypokalemia Status: Acute Assessment and Plan: Potassium was replaced in the emergency room today. We will monitor serum potassium and continue to replace as needed. (8) Dementia: Qualifiers: Dementia type: unspecified type Dementia behavioral disturbance: without behavioral disturbance Qualified Code(s): F03.90 - Unspecified dementia without behavioral disturbance Code(s): F03.90 - Unspecified dementia without behavioral disturbance Status: Chronic Assessment and Plan: Patient has advanced dementia as her son as described to me. She appears only be oriented to herself. No signs of any behavioral disturbances at this point. Continue donepezil and Namenda. (9) Hypertension: Qualifiers: Hypertension type: unspecified Qualified Code(s): I10 - Essential (primary) hypertension Code(s): I10 - Essential (primary) hypertension Status: Chronic Assessment and Plan: Monitor blood pressure. Continue Coreg and valsartan. (10) Hyperlipidemia: Qualifiers: Hyperlipidemia type: unspecified Qualified Code(s): E78.5 - Hyperlipidemia, unspecified Code(s): E78.5 - Hyperlipidemia, unspecified Status: Chronic Assessment and Plan: Check lipid panel in a.m.. Continue simvastatin. Additional Plan Date of service was March 25, 2020 at approximately 7:00 p.m.. Subjective Date/time seen: 03/26/20 14:01 Interval history: 84 year old female who is known to reside at assisted living and brought to the hospital by her son today secondary to generalized weakness and poor PO intake recently. Pt was found to have a Nstemi pt has history of dementia, but denies any chest pain or sob. Pt is on a heparin drip pt to see cardiology today. Review of Systems Review of Systems: All systems reviewed & are unremarkable except as noted in HPI and below Exam Const: General: cooperative and healthy appearing; No in distress Nutritional Appearance: overweight Orientation/consciousness: oriented to person HENMT: Head: normal to inspection Resp: Effort & Inspection: no respiratory distress Auscultation: no rhonchi and no wheezes Cardio: Rate: regular rate Rhythm: regular rhythm GI: Inspection: normal to inspection GI Palp: No abdominal tenderness, No Guarding due to palpation present (GI) and No Hepatomegaly present Auscultation: normal bowel sounds Neuro: General: oriented to person Objective Data Vital Si
--- NOTE | 2020-03-26 19:01 | PC.NURSE ---
This patient, Skye Yao, was transferred to [facility] on 03/26/20 at 1830. Personal belongings sent with patient. Report given to Viki RANDALL. Appropriate documentation sent with patient.
--- NOTE | 2020-03-26 19:47 | ECHO_ITS ---
Patient Info Name: Skye Yao Age: 84 years : 1935 Gender: Female Ht: 60 in Wt: 228 lbs BSA: 2.16 m2 HR: 94 bpm BP: 160 / 88 mmHg Heart Rhythm: Sinus Rhythm Technical Quality: Fair Exam Date: 03/26/2020 9:15 AM Exam Location: [facility] Pulmonary Exam Room: 205 Patient Status: Inpatient Admit Date: 03/25/2020 Staff Ordering Physician: Eyal José MD Finishing Pan Operator: Danyelle Martin RDCS Attending Provider: Lina Enriquez MD Referring Physician: Arnav LOMBARDO; Exam Type: CA echo dop color flow w con Study Info Indications - NSTEMI HX/O PPM Complete two-dimensional, color flow and Doppler transthoracic echocardiogram is performed with contrast to opacify the left ventricle and to improve the deliniation of the left ventricle endocardial borders. Contrast/Agitated Saline Contrast/Ag. Saline: Definity Amount: 1.00 ml Existing IV Access: Yes IV Access Condition: patent with no signs of infiltration Summary 1. Severe left ventricular systolic dysfunction. 2. Akinesis of the apical 2/3 of the left ventricle with good contractility of the base. Suspicious for takotsubo. 3. Mild sclerosis of the aortic valve. 4. Definity contrast injected to improve visualization. 5. No Doppler information included for review. Left Ventricle Left ventricular chamber dimension is mildly enlarged. Left ventricular systolic function is severely reduced, estimated at 25-30%. The left ventricular diastolic function is indeterminate. Right Ventricle Right ventricular chamber dimension is normal. Left Atria Left atrial chamber dimension is mildly enlarged. Right Atria Right atrial chamber dimension is normal. Aortic Valve The aortic valve is trileaflet. There is mild aortic valve sclerosis. Pulmonic Valve The pulmonic valve is not well visualized. Mitral Valve The mitral valve has normal leaflets. Tricuspid Valve The tricuspid valve leaflets are not well visualized. Pericardium/Pleural The pericardium appears normal. Aorta The aortic root size at the sinus of Valsalva is normal. Left Ventricular Outflow Tract Name Value Normal LVOT 2D LVOT Diameter 1.96 cm LVOT Doppler LVOT Peak Gradient 7 mmHg LVOT Mean Gradient 4 mmHg LVOT VTI 21.19 cm LVOT VTI/AV VTI Ratio 0.63 LVOT Stroke Volume 64.12 ml LVOT CO 15.86 l/min LVOT CI 7.35 L/min/m2 Pulmonic Valve Name Value Normal PV Doppler PV Peak Gradient 7 mmHg Mitral Valve Name Value Normal
[2020-03-26] MEDS: DONEPEZIL HCL 10 MG TABLET PO (20:42)
[2020-03-27] VITALS (13 sets, daily range): BP systolic 118–148; BP diastolic 59–81; PULSE 70–74; RESP 16–18; TEMP 36.1–36.4; O2SAT 98–100
[2020-03-27] MEDS: VALSARTAN 160 MG TABLET PO (09:16)
[2020-03-27] MEDS: MEMANTINE HCL XR 28 MG CAP PO (09:16)
[2020-03-27] MEDS: SIMVASTATIN 20 MG TABLET 40 MG PO (09:16)
[2020-03-27] MEDS: MAGNESIUM OXIDE 400 MG TABLET PO (09:16)
[2020-03-27] MEDS: carvediloL 6.25 MG TABLET PO ×2 (09:17→20:53)
--- NOTE | 2020-03-27 10:33 | PM.PNCARD ---
Progress Note: A&P Additional Plan 84-year-old lady with: Elevated troponins, ECG and echo abnormalities very compatible with and suggestive of takotsubo stress cardiomyopathy. She is on appropriate medication for this with her beta-taylor and ARB. Vital signs are stable I do not see a clinical reason to adjust medications at this time. Given her dementia and comorbidities invasive evaluation of this is not planned. Angel Gonzalez MD [facility] Subjective Date/time seen: Date of service: 03/27/20 10:33 Interval history: Follow-up visit in this 84-year-old lady with: Generalized weakness poor p.o. intake and admitted to the hospital for these reasons. Found to have elevated troponin and ECG findings compatible with previous anterior infarction. Echocardiogram done yesterday demonstrates classical wall motion abnormalities compatible with takotsubo cardiomyopathy. Because of her advanced age and dementia and lack of symptoms I do not plan invasive evaluation of this. Today the patient feels comfortable was sleeping flat in bed when I came in to see her upon awakening is comfortable offers no complaints. Exam Const: General: comfortable and no acute distress HENMT: Mouth: Yes moist mucous membranes Eyes: Sclera: sclerae normal Pupils: Equal, round and reactive pupils present Neck: Neck: supple and no JVD Resp: Effort & Inspection: normal respiratory effort Auscultation: clear to auscultation bilaterally Cardio: Rate: regular rate Rhythm: regular rhythm GI: GI Palp: Yes Soft to palpation Auscultation: normal bowel sounds Skin: General skin exam: normal color Neuro: Cognition (Neuro): normal cognition Extrem: General: normal to inspection Objective Data Vital Signs Vital Signs: Vital Signs - 24 hr 03/26/20 11:09 03/26/20 12:00 03/26/20 12:05 Temperature 35.7 C L Pulse Rate 87 79 86 Respiratory Rate 18 Blood Pressure 140/86 Pulse Oximetry 100 03/26/20 14:00 03/26/20 16:00 03/26/20 16:37 Temperature 35.7 C L Pulse Rate 88 75 85 Respiratory Rate 16 Blood Pressure 128/84 Pulse Oximetry 100 03/26/20 18:00 03/26/20 20:00 03/26/20 20:42 Temperature Pulse Rate 84 77 85 Respiratory Rate Blood Pressure Pulse Oximetry 03/26/20 21:12 03/27/20 00:00 03/27/20 04:03 Temperature 36.1 C L Pulse Rate 86 70 70 Respiratory Rate 16 Blood Pressure 130/77 Pulse Oximetry 100 03/27/20 06:00 03/27/20 08:00 03/27/20 09:17 Temperature 36.1 C L 36.4 C Pulse Rate 73 70 70 Respiratory Rate 16 16 Blood Pressure 148/81 H 118/63 Pulse Oximetry 100 98 Intake/Output Intake/Output: Intake & Output 03/24/20 03/25/20 03/26/20 03/27/20 23:59 23:59 23:59 23:59 Intake Total 1100 742 380 Balance 1100 742 380 Meds/Results Medications: Active Medications Generic Name Dose Route Start Last Admin Trade Name Freq PRN Reason Stop Dose Admin Albuterol 2 puff 03/25/20 20:02 Albuterol Sulfate (*Sp) Aerosol 1 Puff INHALATION QID PRN Shortness Of Breath Carvedilol 6.25 mg 03/25/20 21:00 03/27/20 09:17 Carvedilol 6.25 Mg Tablet PO 6.25 mg Q12HR SHERON Administration Donepezil HCl 10 mg 03/25/20 21:00 03/26/20 20:42 Donepezil Hcl 10 Mg Tablet PO 10 mg HS SHERON Administration Ceftriaxone Sodium/Dextrose 1 gm in 50 mls @ 100 mls/hr 03/26/20 12:00 03/26/20 15:08 Rocephin 1 Gm/D5w 50 Ml IVPB 100 mls/hr NOON SHERON Administration Magnesium Oxide 400 mg 03/26/20 09:00 03/27/20 09:16 Magnesium Oxide 400 Mg Tablet PO 400 mg DAILY SHERON Administration Memantine 28 mg 03/26/20 09:00 03/27/20 09:16 Memantine Hcl Xr 28 Mg Cap PO 28 mg DAILY SHERON Administration Simvastatin 40 mg 03/26/20 09:00 03/27/20 09:16 Simvastatin 20 Mg Tablet PO 40 mg DAILY SHERON Administration Valsartan 160 mg 03/26/20 09:00 03/27/20 09:16 Valsartan 160 Mg Tablet PO 160 mg DAILY SHERON Administration Radiolo
--- NOTE | 2020-03-27 12:04 | PM.IMPN ---
Progress Note: A&P Assessment and Plan (1) Generalized weakness: Code(s): R53.1 - Weakness Status: Acute Assessment and Plan: The patient has been placed in observation status. (2) Appetite loss: Code(s): R63.0 - Anorexia Status: Acute Assessment and Plan: Pt passed swallow study (3) NSTEMI (non-ST elevated myocardial infarction): Code(s): I21.4 - Non-ST elevation (NSTEMI) myocardial infarction Status: Acute Assessment and Plan: Patient has evidence of NSTEMI with elevated troponins and abnormal EKG findings with Q-waves in anterior leads. Pt seen by cardiology, conservative approach, medications were adjusted. 03/27/20 12:04 patient is 84-year-old female with history of severe dementia ER resident of nursing was brought to the emergency department with generalized weakness poor appetite and fatigue patient was found to non STEMI with elevated tropes was seen by Cardiology and because of severe dementia and patient has no complaint of chest, it was decided the patient will be treated with medical management, patient had a cardiac echo showed ejection fraction of 25%, patient is seen by driller hand today suspect most likely secondary to takotsubo cardiomyopathy, unfortunately patient unable to provide much review of symptom, is pleasantly confused, upon arrival patient had abnormal UA, growing E coli sensitive to Rocephin will continue, will continue the medical management and further recommendation to follow (4) Abnormal urinalysis: Code(s): R82.90 - Unspecified abnormal findings in urine Status: Acute Assessment and Plan: Awaiting UC, continue IV antibiotics for now. (5) Abnormal glucose: Code(s): R73.09 - Other abnormal glucose Status: Acute Assessment and Plan: Check hemoglobin A1c. (6) Leukocytosis: Qualifiers: Leukocytosis type: unspecified Qualified Code(s): D72.829 - Elevated white blood cell count, unspecified Code(s): D72.829 - Elevated white blood cell count, unspecified Status: Acute Assessment and Plan: Leukocytosis may be secondary to urinary tract infection versus sterile inflammation from NSTEMI. Monitor CBCD. (7) Hypokalemia: Code(s): E87.6 - Hypokalemia Status: Acute Assessment and Plan: Potassium was replaced in the emergency room today. We will monitor serum potassium and continue to replace as needed. (8) Dementia: Qualifiers: Dementia type: unspecified type Dementia behavioral disturbance: without behavioral disturbance Qualified Code(s): F03.90 - Unspecified dementia without behavioral disturbance Code(s): F03.90 - Unspecified dementia without behavioral disturbance Status: Chronic Assessment and Plan: Patient has advanced dementia as her son as described to me. She appears only be oriented to herself. No signs of any behavioral disturbances at this point. Continue donepezil and Namenda. (9) Hypertension: Qualifiers: Hypertension type: unspecified Qualified Code(s): I10 - Essential (primary) hypertension Code(s): I10 - Essential (primary) hypertension Status: Chronic Assessment and Plan: Monitor blood pressure. Continue Coreg and valsartan. (10) Hyperlipidemia: Qualifiers: Hyperlipidemia type: unspecified Qualified Code(s): E78.5 - Hyperlipidemia, unspecified Code(s): E78.5 - Hyperlipidemia, unspecified Status: Chronic Assessment and Plan: Check lipid panel in a.m.. Continue simvastatin. Subjective Date/time seen: 03/27/20 12:04 patient is 84-year-old female with history of severe dementia ER resident of nursing was brought to the emergency department with generalized weakness poor appetite and fatigue patient was found to non STEMI with elevated tropes was seen by Cardiology and because of severe dementia and patient has no complaint
[2020-03-27] MEDS: DONEPEZIL HCL 10 MG TABLET PO (20:53)
[2020-03-27 21:23] LABS: SARS-CoV-2 RNA PCR Negative
[2020-03-28] VITALS (10 sets, daily range): BP systolic 103–144; BP diastolic 60–84; PULSE 70–72; RESP 16; TEMP 35.9–36.6; O2SAT 97–100
[2020-03-28 06:21] LABS: Anion Gap 5 mmol/L (8-16); Blood Urea Nitrogen 38 mg/dL (7-17); Calcium 8.9 mg/dL (8.4-10.2); Carbon Dioxide 29 mmol/L (22-30); Chloride 95 mmol/L (98-107); Estimated CRCL calculation 33 ml/min; Estimated Glomerular Filt Rate > 60; Glucose 107 mg/dL (65-105); Potassium 3.5 mmol/L (3.4-5.0); Sodium 129 mmol/L (137-145)
[2020-03-28] MEDS: carvediloL 6.25 MG TABLET PO ×2 (08:27→21:29)
[2020-03-28] MEDS: VALSARTAN 160 MG TABLET PO (08:28)
[2020-03-28] MEDS: MEMANTINE HCL XR 28 MG CAP PO (08:28)
[2020-03-28] MEDS: SIMVASTATIN 20 MG TABLET 40 MG PO (08:28)
[2020-03-28] MEDS: MAGNESIUM OXIDE 400 MG TABLET PO (08:28)
--- NOTE | 2020-03-28 09:18 | P.DS_ITS ---
DS: Summary Time Spent with Patient Time attestation: Total time spent providing and/or coordinating discharge ser vices: DS: Data Data Completed and Pending Labs on day of discharge: Labs from last 24 hours 03/28/20 03/27/20 05:25 15:10 Sodium 129 L Potassium 3.5 Chloride 95 L Carbon Dioxide 29 Anion Gap 5 L BUN 38 H Creatinine 0.80 Estim Creat Clear Calc 33 Estimated GFR > 60 Glucose 107 H Calcium 8.9 SARS-CoV-2 RNA (RT-PCR) Negative Discharge Plan Discharge Attending physician on discharge: Andreas Gomez Consulting providers: Angel Gonzalez Discharging Clinician: Andreas Gomez Patient Disposition: NH Assisted/Asst Living Activity: as tolerated Diet: heart healthy Discharge Instructions: Patient to follow up with her primary care provider as soon as possible. Patient Instructions: Antibiotic Form Stand Alone Forms: General Discharge Information Follow-up/Referrals: Negrito,Sunil Rosales MD [Primary Care Provider] - Discharge Medications: New cefdinir 300 mg capsule 300 mg PO Q12H Qty: 10 RF: 0 Continued carvedilol [Coreg] 6.25 mg Tablet 6.25 mg PO Q12H RF: 0 donepezil 10 mg Tablet 10 mg PO HS RF: 0 simvastatin 40 mg Tablet 40 mg PO DAILY RF: 0 allopurinol 300 mg Tablet 300 mg PO DAILY RF: 0 vitamin B complex [B Complex] Capsule 2 cap PO DAILY RF: 0 valsartan 160 mg Tablet 160 mg PO DAILY RF: 0 cholecalciferol (vitamin D3) [Vitamin D3] 25 mcg (1,000 unit) Capsule 2,000 unit PO DAILY RF: 0 magnesium 200 mg Tablet 400 mg PO DAILY RF: 0 memantine [Namenda XR] 28 mg Capsule,Sprinkle,Er 24hr 28 mg PO DAILY RF: 0 albuterol sulfate [ProAir HFA] 90 mcg/actuation Hfa Aerosol Inhaler 2 puff INHALATION QID PRN (Reason: Shortness Of Breath) RF: 0 Date of admission: 03/26/20 16:46 Primary Care Provider: Diane,Sunil Rosales Admitting Provider: Lina Enriquez Attending physician on admission: Lina Enriquez Condition: Stable Quality VTE Prophylaxis VTE prophylaxis: pharmacologic ordered
--- NOTE | 2020-03-28 10:30 | PM.PNCARD ---
Progress Note: A&P Assessment and Plan (1) Cardiomyopathy: Code(s): I42.9 - Cardiomyopathy, unspecified Status: Acute Assessment and Plan: She does have some crackles today. I am going to give her 40 mg of IV Lasix x1 and potassium chloride 40 mEq p.o. x1. She very well may need a maintenance dose of furosemide as an outpatient (2) Hypertension: Qualifiers: Hypertension type: unspecified Qualified Code(s): I10 - Essential (primary) hypertension Code(s): I10 - Essential (primary) hypertension Status: Chronic Assessment and Plan: At goal (3) NSTEMI (non-ST elevated myocardial infarction): Code(s): I21.4 - Non-ST elevation (NSTEMI) myocardial infarction Status: Acute Assessment and Plan: Possibly related to stress-induced cardiomyopathy. Continue medical management including beta-taylor, ARB, statin. Add low-dose aspirin 1 mg p.o. daily. (4) Dementia: Qualifiers: Dementia type: unspecified type Dementia behavioral disturbance: without behavioral disturbance Qualified Code(s): F03.90 - Unspecified dementia without behavioral disturbance Code(s): F03.90 - Unspecified dementia without behavioral disturbance Status: Chronic Subjective Date/time seen: 03/28/20 10:30 Interval history: Follow-up visit in this 84-year-old lady with: Generalized weakness poor p.o. intake and admitted to the hospital for these reasons. Found to have elevated troponin and ECG findings compatible with previous anterior infarction. Echocardiogram done yesterday demonstrates classical wall motion abnormalities compatible with takotsubo cardiomyopathy. Because of her advanced age and dementia and lack of symptoms I do not plan invasive evaluation of this. Date of service 03/28/2020: She denies any chest pain or shortness of breath. Review of Systems Review of Systems: All systems reviewed & are unremarkable except as noted in HPI and below Constitutional: Constitutional: Denies fatigue and Denies weakness Eyes: Eyes: Denies blurry vision ENT: Reports Normal hearing present Cardiovascular: Cardiovascular: Denies chest pain Respiratory: Respiratory: Denies dyspnea Gastrointestinal: Gastrointestinal: Denies abdominal pain Genitourinary: Genitourinary: Denies flank pain Musculoskeletal: Musculoskeletal: Denies neck pain Integumentary/Breasts: Skin/Breast: Denies dry skin Neurologic: Denies headache(s) Psychiatric: Psychiatric: Denies anxiety Endocrine: Endocrine: Denies change in body appearance Hematologic/Lymphatic: Hematologic/Lymphatic: Denies easy bleeding Allergic/Immunologic: Allergic/Immunologic: Denies GI upset with certain foods Exam Const: General: comfortable and no acute distress Other: Pleasant elderly lady sitting up in bed in no distress of any kind she is responsive and alert HENMT: Mouth: Yes moist mucous membranes Eyes: Sclera: sclerae normal Pupils: Equal, round and reactive pupils present Neck: Neck: supple and no JVD Other: carotid pulses are intact bilaterally no bruits are heard over the neck Resp: Effort & Inspection: normal respiratory effort Auscultation: crackles Other: possibly a few dependent crackles otherwise no wheezing very good air movement Cardio: Rate: regular rate Rhythm: regular rhythm Other: very soft systolic murmur that does not radiate from the left sternal border. GI: Auscultation: normal bowel sounds Skin: General skin exam: normal color Neuro: Cranial nerves: Yes Equal, round and reactive pupils present Cognition (Neuro): normal cognition Other: Pleasant alert lady who is significantly demented as mentioned above Extrem: General: normal to inspection Objective Data Vital Signs Vital Signs: Vital Signs - 24 hr 03/27/20 12:00 03/27/20 13:00 03/27/20 16:00 Temperature 36.4 C L 36.3 C L Pulse Rate 71 70 74 Respiratory Rate 16 18 Blood Pressure 124/59 L
[2020-03-28] MEDS: FUROSEMIDE INJ 40 MG/4 ML VIAL IV PUSH (10:49)
[2020-03-28] MEDS: POTASSIUM CHLORIDE 20 MEQ TABLET 40 MEQ PO (10:49)
[2020-03-28] MEDS: DONEPEZIL HCL 10 MG TABLET PO (21:34)
[2020-03-29] VITALS (9 sets, daily range): BP systolic 100–131; BP diastolic 56–75; PULSE 70–85; RESP 16–20; TEMP 35.7–36.3; O2SAT 97–100
[2020-03-29 05:50] LABS: Anion Gap 5 mmol/L (8-16); Blood Urea Nitrogen 38 mg/dL (7-17); Carbon Dioxide 28 mmol/L (22-30); Chloride 96 mmol/L (98-107); Estimated CRCL calculation 30 ml/min; Estimated Glomerular Filt Rate 60; Glucose 109 mg/dL (65-105); Potassium 3.8 mmol/L (3.4-5.0); Sodium 129 mmol/L (137-145)
[2020-03-29] MEDS: MEMANTINE HCL XR 28 MG CAP PO (08:50)
[2020-03-29] MEDS: carvediloL 6.25 MG TABLET PO ×2 (08:50→20:41)
[2020-03-29] MEDS: SIMVASTATIN 20 MG TABLET 40 MG PO (08:50)
[2020-03-29] MEDS: MAGNESIUM OXIDE 400 MG TABLET PO (08:50)
[2020-03-29] MEDS: ASPIRIN 81 MG ENTERIC TABLET PO (08:50)
[2020-03-29] MEDS: VALSARTAN 160 MG TABLET PO (08:50)
--- NOTE | 2020-03-29 10:06 | PM.PNCARD ---
Progress Note: A&P Assessment and Plan (1) Cardiomyopathy: Code(s): I42.9 - Cardiomyopathy, unspecified Status: Acute Assessment and Plan: Continue furosemide but at a lower dose. Will start 20 mg p.o. daily. Potassium chloride 40 mEq p.o. x1. (2) Hypertension: Qualifiers: Hypertension type: unspecified Qualified Code(s): I10 - Essential (primary) hypertension Code(s): I10 - Essential (primary) hypertension Status: Chronic Assessment and Plan: At goal (3) NSTEMI (non-ST elevated myocardial infarction): Code(s): I21.4 - Non-ST elevation (NSTEMI) myocardial infarction Status: Acute Assessment and Plan: Possibly related to stress-induced cardiomyopathy. Continue medical management including beta-taylor, ARB, statin. Add low-dose aspirin 1 mg p.o. daily. (4) Dementia: Qualifiers: Dementia type: unspecified type Dementia behavioral disturbance: without behavioral disturbance Qualified Code(s): F03.90 - Unspecified dementia without behavioral disturbance Code(s): F03.90 - Unspecified dementia without behavioral disturbance Status: Chronic Subjective Date/time seen: 03/29/20 10:06 Interval history: Follow-up visit in this 84-year-old lady with: Generalized weakness poor p.o. intake and admitted to the hospital for these reasons. Found to have elevated troponin and ECG findings compatible with previous anterior infarction. Echocardiogram done yesterday demonstrates classical wall motion abnormalities compatible with takotsubo cardiomyopathy. Because of her advanced age and dementia and lack of symptoms I do not plan invasive evaluation of this. Date of service 03/29/2020: She denies any chest pain or shortness of breath. Feels okay Review of Systems Review of Systems: All systems reviewed & are unremarkable except as noted in HPI and below ROS unobtainable: Yes unobtainable due to mental status Constitutional: Constitutional: Denies fatigue, Denies headache(s) and Denies weakness Eyes: Eyes: Denies blurry vision ENT: Reports Normal hearing present, Denies headache(s) and Denies neck pain Cardiovascular: Cardiovascular: Denies chest pain and Denies dyspnea Respiratory: Respiratory: Denies dyspnea Gastrointestinal: Gastrointestinal: Denies abdominal pain Genitourinary: Genitourinary: Denies flank pain Musculoskeletal: Musculoskeletal: Denies neck pain Integumentary/Breasts: Skin/Breast: Denies dry skin Neurologic: Reports Normal hearing present, Denies headache(s) and Denies weakness Psychiatric: Psychiatric: Denies anxiety Endocrine: Endocrine: Denies change in body appearance and Denies fatigue Hematologic/Lymphatic: Hematologic/Lymphatic: Denies easy bleeding Allergic/Immunologic: Allergic/Immunologic: Denies GI upset with certain foods Exam Const: General: comfortable and no acute distress Other: Pleasant elderly lady sitting up in bed in no distress of any kind she is responsive and alert HENMT: Mouth: Yes moist mucous membranes Eyes: Sclera: sclerae normal Pupils: Equal, round and reactive pupils present Neck: Neck: supple and no JVD Other: carotid pulses are intact bilaterally no bruits are heard over the neck Resp: Effort & Inspection: normal respiratory effort Auscultation: crackles Other: Less crackles today. No wheezing Cardio: Rate: regular rate Rhythm: regular rhythm Other: very soft systolic murmur that does not radiate from the left sternal border. GI: Auscultation: normal bowel sounds Skin: General skin exam: normal color Neuro: Cranial nerves: Yes Equal, round and reactive pupils present and Yes Normal hearing present Cognition (Neuro): normal cognition Other: Pleasant alert lady who is significantly demented as mentioned above Extrem: General: normal to inspection Objective Data Vital Signs Vital Signs: Vital Signs - 24 hr 03/28/20 12:00 03/28/20 16:00 0
[2020-03-29] MEDS: POTASSIUM CHLORIDE 20 MEQ TABLET 40 MEQ PO (11:15)
[2020-03-29] MEDS: FUROSEMIDE 20 MG TABLET PO (11:15)
--- NOTE | 2020-03-29 12:49 | PM.IMPN ---
Progress Note: A&P Assessment and Plan (1) Generalized weakness: Code(s): R53.1 - Weakness Status: Acute Assessment and Plan: The patient has been placed in observation status. (2) Appetite loss: Code(s): R63.0 - Anorexia Status: Acute Assessment and Plan: Pt passed swallow study (3) NSTEMI (non-ST elevated myocardial infarction): Code(s): I21.4 - Non-ST elevation (NSTEMI) myocardial infarction Status: Acute Assessment and Plan: Patient has evidence of NSTEMI with elevated troponins and abnormal EKG findings with Q-waves in anterior leads. Pt seen by cardiology, conservative approach, medications were adjusted. 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 was brought to the emergency department with generalized weakness poor appetite and fatigue patient was found to non STEMI with elevated tropes was seen by Cardiology and because of severe dementia and patient has no complaint of chest, it was decided the patient will be treated with medical management, patient had a cardiac echo showed ejection fraction of 25%, patient is seen by tub attendant today suspect most likely secondary to takotsubo cardiomyopathy, unfortunately patient unable to provide much review of symptom, is pleasantly confused, upon arrival patient had abnormal UA, growing E coli sensitive to Rocephin will continue, will continue the medical management and further recommendation to follow 03/28 patient was seen by her tub attendant and recommended one time dose of IV lasix will help with CHF as patient has significant cardiomyopathy with EF of 25%, will continue to monitor, patient will continue to participate in PT/OT before returning back to [place]. (4) Abnormal urinalysis: Code(s): R82.90 - Unspecified abnormal findings in urine Status: Acute Assessment and Plan: Awaiting UC, continue IV antibiotics for now. (5) Abnormal glucose: Code(s): R73.09 - Other abnormal glucose Status: Acute Assessment and Plan: Check hemoglobin A1c. (6) Leukocytosis: Qualifiers: Leukocytosis type: unspecified Qualified Code(s): D72.829 - Elevated white blood cell count, unspecified Code(s): D72.829 - Elevated white blood cell count, unspecified Status: Acute Assessment and Plan: Leukocytosis may be secondary to urinary tract infection versus sterile inflammation from NSTEMI. Monitor CBCD. (7) Hypokalemia: Code(s): E87.6 - Hypokalemia Status: Acute Assessment and Plan: Potassium was replaced in the emergency room today. We will monitor serum potassium and continue to replace as needed. (8) Dementia: Qualifiers: Dementia type: unspecified type Dementia behavioral disturbance: without behavioral disturbance Qualified Code(s): F03.90 - Unspecified dementia without behavioral disturbance Code(s): F03.90 - Unspecified dementia without behavioral disturbance Status: Chronic Assessment and Plan: Patient has advanced dementia as her son as described to me. She appears only be oriented to herself. No signs of any behavioral disturbances at this point. Continue donepezil and Namenda. (9) Hypertension: Qualifiers: Hypertension type: unspecified Qualified Code(s): I10 - Essential (primary) hypertension Code(s): I10 - Essential (primary) hypertension Status: Chronic Assessment and Plan: Monitor blood pressure. Continue Coreg and valsartan. (10) Hyperlipidemia: Qualifiers: Hyperlipidemia type: unspecified Qualified Code(s): E78.5 - Hyperlipidemia, unspecified Code(s): E78.5 - Hyperlipidemia, unspecified Status: Chronic Assessment and Plan: Check lipid panel in a.m.. Continue simvastatin. Subjective Date/time seen: 03/28/2003/27 12:04 patient is 84-year-old female with
--- NOTE | 2020-03-29 13:26 | PM.IMPN ---
Progress Note: A&P Assessment and Plan (1) Generalized weakness: Code(s): R53.1 - Weakness Status: Acute Assessment and Plan: The patient has been placed in observation status. (2) Appetite loss: Code(s): R63.0 - Anorexia Status: Acute Assessment and Plan: Pt passed swallow study (3) NSTEMI (non-ST elevated myocardial infarction): Code(s): I21.4 - Non-ST elevation (NSTEMI) myocardial infarction Status: Acute Assessment and Plan: Patient has evidence of NSTEMI with elevated troponins and abnormal EKG findings with Q-waves in anterior leads. Pt seen by cardiology, conservative approach, medications were adjusted. 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 was brought to the emergency department with generalized weakness poor appetite and fatigue patient was found to non STEMI with elevated tropes was seen by Cardiology and because of severe dementia and patient has no complaint of chest, it was decided the patient will be treated with medical management, patient had a cardiac echo showed ejection fraction of 25%, patient is seen by ceramic designer today suspect most likely secondary to takotsubo cardiomyopathy, unfortunately patient unable to provide much review of symptom, is pleasantly confused, upon arrival patient had abnormal UA, growing E coli sensitive to Rocephin will continue, will continue the medical management and further recommendation to follow 03/28 patient was seen by her ceramic designer and recommended one time dose of IV lasix will help with CHF as patient has significant cardiomyopathy with EF of 25%, will continue to monitor, patient will continue to participate in PT/OT before returning back to [place]. 03/29 today ceramic designer started the patient on oral Lasix 20 mg q.day, patient is clinically stable denies any complaint of chest pain or shortness of breath, continue to work with PT OT, waiting for insurance authorization to discharge the patient to intermediate. (4) Abnormal urinalysis: Code(s): R82.90 - Unspecified abnormal findings in urine Status: Acute Assessment and Plan: Awaiting UC, continue IV antibiotics for now. (5) Abnormal glucose: Code(s): R73.09 - Other abnormal glucose Status: Acute Assessment and Plan: Check hemoglobin A1c. (6) Leukocytosis: Qualifiers: Leukocytosis type: unspecified Qualified Code(s): D72.829 - Elevated white blood cell count, unspecified Code(s): D72.829 - Elevated white blood cell count, unspecified Status: Acute Assessment and Plan: Leukocytosis may be secondary to urinary tract infection versus sterile inflammation from NSTEMI. Monitor CBCD. (7) Hypokalemia: Code(s): E87.6 - Hypokalemia Status: Acute Assessment and Plan: Potassium was replaced in the emergency room today. We will monitor serum potassium and continue to replace as needed. (8) Dementia: Qualifiers: Dementia type: unspecified type Dementia behavioral disturbance: without behavioral disturbance Qualified Code(s): F03.90 - Unspecified dementia without behavioral disturbance Code(s): F03.90 - Unspecified dementia without behavioral disturbance Status: Chronic Assessment and Plan: Patient has advanced dementia as her son as described to me. She appears only be oriented to herself. No signs of any behavioral disturbances at this point. Continue donepezil and Namenda. (9) Hypertension: Qualifiers: Hypertension type: unspecified Qualified Code(s): I10 - Essential (primary) hypertension Code(s): I10 - Essential (primary) hypertension Status: Chronic Assessment and Plan: Monitor blood pressure. Continue Coreg and valsartan. (10) Hyperlipidemia: Qualifiers: Hyperlipidemia type: unspecified Qualified Code(s): E78.5 - Hyp
[2020-03-29] MEDS: DONEPEZIL HCL 10 MG TABLET PO (20:41)
[2020-03-30] VITALS (16 sets, daily range): BP systolic 77–121; BP diastolic 46–70; PULSE 70–72; RESP 16–20; TEMP 35.9–36.2; O2SAT 98–99
[2020-03-30 06:31] LABS: Anion Gap 4 mmol/L (8-16); Blood Urea Nitrogen 35 mg/dL (7-17); Calcium 8.5 mg/dL (8.4-10.2); Carbon Dioxide 27 mmol/L (22-30); Chloride 96 mmol/L (98-107); Estimated CRCL calculation 30 ml/min; Estimated Glomerular Filt Rate 60; Glucose 105 mg/dL (65-105); Potassium 4.8 mmol/L (3.4-5.0); Sodium 127 mmol/L (137-145)
[2020-03-30] MEDS: SIMVASTATIN 20 MG TABLET 40 MG PO (09:01)
[2020-03-30] MEDS: MAGNESIUM OXIDE 400 MG TABLET PO (09:02)
[2020-03-30] MEDS: carvediloL 6.25 MG TABLET PO (09:02)
[2020-03-30] MEDS: ASPIRIN 81 MG ENTERIC TABLET PO (09:02)
[2020-03-30] MEDS: VALSARTAN 160 MG TABLET PO (09:02)
[2020-03-30] MEDS: MEMANTINE HCL XR 28 MG CAP PO (09:02)
[2020-03-30] MEDS: FUROSEMIDE 20 MG TABLET PO (09:02)
[2020-03-30] MEDS: SODIUM CHLORIDE 0.9% IV 250 ML 999 ML IV CONT (10:45)
--- NOTE | 2020-03-30 14:07 | PM.PNCARD ---
Progress Note: A&P Assessment and Plan (1) Cardiomyopathy: Code(s): I42.9 - Cardiomyopathy, unspecified Status: Acute Assessment and Plan: Will lower carvedilol down to 3.25 mg p.o. b.i.d. hold furosemide (2) Hypertension: Qualifiers: Hypertension type: unspecified Qualified Code(s): I10 - Essential (primary) hypertension Code(s): I10 - Essential (primary) hypertension Status: Chronic Assessment and Plan: At goal (3) NSTEMI (non-ST elevated myocardial infarction): Code(s): I21.4 - Non-ST elevation (NSTEMI) myocardial infarction Status: Acute Assessment and Plan: Possibly related to stress-induced cardiomyopathy. Continue medical management including beta-taylor, ARB, statin. (4) Dementia: Qualifiers: Dementia type: unspecified type Dementia behavioral disturbance: without behavioral disturbance Qualified Code(s): F03.90 - Unspecified dementia without behavioral disturbance Code(s): F03.90 - Unspecified dementia without behavioral disturbance Status: Chronic Subjective Date/time seen: 03/30/20 14:07 Interval history: Follow-up visit in this 84-year-old lady with: Generalized weakness poor p.o. intake and admitted to the hospital for these reasons. Found to have elevated troponin and ECG findings compatible with previous anterior infarction. Echocardiogram done yesterday demonstrates classical wall motion abnormalities compatible with takotsubo cardiomyopathy. Because of her advanced age and dementia and lack of symptoms I do not plan invasive evaluation of this. Date of service 03/30/2020: hypotensive earlier today and currently is feeling fine. No chest pain or shortness of breath. Review of Systems Review of Systems: All systems reviewed & are unremarkable except as noted in HPI and below ROS unobtainable: Yes unobtainable due to mental status Constitutional: Constitutional: Denies fatigue, Denies headache(s) and Denies weakness Eyes: Eyes: Denies blurry vision ENT: Reports Normal hearing present, Denies headache(s) and Denies neck pain Cardiovascular: Cardiovascular: Denies chest pain and Denies dyspnea Respiratory: Respiratory: Denies dyspnea Gastrointestinal: Gastrointestinal: Denies abdominal pain Genitourinary: Genitourinary: Denies flank pain Musculoskeletal: Musculoskeletal: Denies neck pain Integumentary/Breasts: Skin/Breast: Denies dry skin Neurologic: Reports Normal hearing present, Denies headache(s) and Denies weakness Psychiatric: Psychiatric: Denies anxiety Endocrine: Endocrine: Denies change in body appearance and Denies fatigue Hematologic/Lymphatic: Hematologic/Lymphatic: Denies easy bleeding Allergic/Immunologic: Allergic/Immunologic: Denies GI upset with certain foods Exam Const: General: comfortable and no acute distress Other: Pleasant elderly lady sitting up in bed in no distress of any kind she is responsive and alert HENMT: Mouth: Yes moist mucous membranes Eyes: Sclera: sclerae normal Neck: Neck: supple and no JVD Other: carotid pulses are intact bilaterally no bruits are heard over the neck Resp: Effort & Inspection: normal respiratory effort Other: No wheezing Cardio: Rate: regular rate Rhythm: regular rhythm Other: very soft systolic murmur that does not radiate from the left sternal border. GI: Auscultation: normal bowel sounds Skin: General skin exam: normal color Neuro: Cranial nerves: Yes Normal hearing present Cognition (Neuro): normal cognition Other: Pleasant alert lady who is significantly demented as mentioned above Extrem: General: normal to inspection Objective Data Vital Signs Vital Signs: Vital Signs - 24 hr 03/29/20 16:00 03/29/20 20:00 03/29/20 20:41 Temperature 36.3 C L 36.2 C L Pulse Rate 85 70 70 Respiratory Rate 16 20 Blood Pressure 128/56 L 100/57 L Pulse Oximetry 98 97 03/30/20 00:00 03/30/20 04:
--- NOTE | 2020-03-30 15:48 | PM.IMPN ---
Progress Note: A&P Assessment and Plan (1) Generalized weakness: Code(s): R53.1 - Weakness Status: Acute Assessment and Plan: The patient has been placed in observation status. (2) Appetite loss: Code(s): R63.0 - Anorexia Status: Acute Assessment and Plan: Pt passed swallow study (3) NSTEMI (non-ST elevated myocardial infarction): Code(s): I21.4 - Non-ST elevation (NSTEMI) myocardial infarction Status: Acute Assessment and Plan: Patient has evidence of NSTEMI with elevated troponins and abnormal EKG findings with Q-waves in anterior leads. Pt seen by cardiology, conservative approach, medications were adjusted. 03/30/20 15:48 03/27 12:04 patient is 84-year-old female with history of severe dementia ER resident of nursing was brought to the emergency department with generalized weakness poor appetite and fatigue patient was found to non STEMI with elevated tropes was seen by Cardiology and because of severe dementia and patient has no complaint of chest, it was decided the patient will be treated with medical management, patient had a cardiac echo showed ejection fraction of 25%, patient is seen by network engineering advisor today suspect most likely secondary to takotsubo cardiomyopathy, unfortunately patient unable to provide much review of symptom, is pleasantly confused, upon arrival patient had abnormal UA, growing E coli sensitive to Rocephin will continue, will continue the medical management and further recommendation to follow 03/28 patient was seen by her network engineering advisor and recommended one time dose of IV lasix will help with CHF as patient has significant cardiomyopathy with EF of 25%, will continue to monitor, patient will continue to participate in PT/OT before returning back to [place]. 03/29 today network engineering advisor started the patient on oral Lasix 20 mg q.day, patient is clinically stable denies any complaint of chest pain or shortness of breath, continue to work with PT OT, waiting for insurance authorization to discharge the patient to assisted. 03/30, on 03/29 network engineering advisor started the patient on oral Lasix 20 mg q.day, today patient was hypotensive, however patient did not c/o CP, shortness of breath or dizziness, she was quite weak during PT that prompted to check he BP, was given 250ml NS bolus this help bring pressure, was seen by network engineering advisor and stopped lasix and lowered Corge to 3.25mg BID from 6.5mg BID. patient is clinically stable, will continue monitor and further recommendation to follow (4) Abnormal urinalysis: Code(s): R82.90 - Unspecified abnormal findings in urine Status: Acute Assessment and Plan: Awaiting UC, continue IV antibiotics for now. (5) Abnormal glucose: Code(s): R73.09 - Other abnormal glucose Status: Acute Assessment and Plan: Check hemoglobin A1c. (6) Leukocytosis: Qualifiers: Leukocytosis type: unspecified Qualified Code(s): D72.829 - Elevated white blood cell count, unspecified Code(s): D72.829 - Elevated white blood cell count, unspecified Status: Acute Assessment and Plan: Leukocytosis may be secondary to urinary tract infection versus sterile inflammation from NSTEMI. Monitor CBCD. (7) Hypokalemia: Code(s): E87.6 - Hypokalemia Status: Acute Assessment and Plan: Potassium was replaced in the emergency room today. We will monitor serum potassium and continue to replace as needed. (8) Dementia: Qualifiers: Dementia type: unspecified type Dementia behavioral disturbance: without behavioral disturbance Qualified Code(s): F03.90 - Unspecified dementia without behavioral disturbance Code(s): F03.90 - Unspecified dementia without behavioral disturbance Status: Chronic Assessment and Plan: Patient has advanced dementia as her son as described to me. She appears only be oriented to herself. No signs of any behavioral disturba
[2020-03-30] MEDS: carvediloL 3.125 MG TABLET PO (22:53)
[2020-03-30] MEDS: DONEPEZIL HCL 10 MG TABLET PO (22:53)
[2020-03-31] VITALS (12 sets, daily range): BP systolic 100–107; BP diastolic 49–64; PULSE 70–76; RESP 14–18; TEMP 35.8–36.4; O2SAT 94–98
[2020-03-31 06:04] LABS: Anion Gap 4 mmol/L (8-16); Blood Urea Nitrogen 29 mg/dL (7-17); Calcium 8.7 mg/dL (8.4-10.2); Carbon Dioxide 28 mmol/L (22-30); Chloride 96 mmol/L (98-107); Estimated CRCL calculation 33 ml/min; Estimated Glomerular Filt Rate > 60; Glucose 88 mg/dL (65-105); Potassium 4.2 mmol/L (3.4-5.0); Sodium 128 mmol/L (137-145)
[2020-03-31] MEDS: ASPIRIN 81 MG ENTERIC TABLET PO ×2 (08:51→21:15)
[2020-03-31] MEDS: MAGNESIUM OXIDE 400 MG TABLET PO (08:51)
[2020-03-31] MEDS: MEMANTINE HCL XR 28 MG CAP PO (08:51)
[2020-03-31] MEDS: carvediloL 3.125 MG TABLET PO ×2 (08:51→21:15)
[2020-03-31] MEDS: SIMVASTATIN 20 MG TABLET 40 MG PO (08:52)
[2020-03-31] MEDS: VALSARTAN 160 MG TABLET PO (08:52)
--- NOTE | 2020-03-31 10:03 | PM.PNCARD ---
Progress Note: A&P Assessment and Plan (1) Cardiomyopathy: Code(s): I42.9 - Cardiomyopathy, unspecified Status: Acute Assessment and Plan: Continue carvedilol. DC furosemide (2) Hypertension: Qualifiers: Hypertension type: unspecified Qualified Code(s): I10 - Essential (primary) hypertension Code(s): I10 - Essential (primary) hypertension Status: Chronic Assessment and Plan: At goal (3) NSTEMI (non-ST elevated myocardial infarction): Code(s): I21.4 - Non-ST elevation (NSTEMI) myocardial infarction Status: Acute Assessment and Plan: Possibly related to stress-induced cardiomyopathy. Continue medical management including beta-taylor, ARB, statin. (4) Dementia: Qualifiers: Dementia type: unspecified type Dementia behavioral disturbance: without behavioral disturbance Qualified Code(s): F03.90 - Unspecified dementia without behavioral disturbance Code(s): F03.90 - Unspecified dementia without behavioral disturbance Status: Chronic Subjective Date/time seen: 03/31/20 10:03 Interval history: Follow-up visit in this 84-year-old lady with: Generalized weakness poor p.o. intake and admitted to the hospital for these reasons. Found to have elevated troponin and ECG findings compatible with previous anterior infarction. Echocardiogram done yesterday demonstrates classical wall motion abnormalities compatible with takotsubo cardiomyopathy. Because of her advanced age and dementia and lack of symptoms I do not plan invasive evaluation of this. Date of service 03/31/2020: Awake alert. No chest pain or shortness of breath. Review of Systems Review of Systems: All systems reviewed & are unremarkable except as noted in HPI and below ROS unobtainable: Yes unobtainable due to mental status Constitutional: Constitutional: Denies fatigue, Denies headache(s) and Denies weakness Eyes: Eyes: Denies blurry vision ENT: Reports Normal hearing present, Denies headache(s) and Denies neck pain Cardiovascular: Cardiovascular: Denies chest pain and Denies dyspnea Respiratory: Respiratory: Denies dyspnea Gastrointestinal: Gastrointestinal: Denies abdominal pain Genitourinary: Genitourinary: Denies flank pain Musculoskeletal: Musculoskeletal: Denies neck pain Integumentary/Breasts: Skin/Breast: Denies dry skin Neurologic: Reports Normal hearing present, Denies headache(s) and Denies weakness Psychiatric: Psychiatric: Denies anxiety Endocrine: Endocrine: Denies change in body appearance and Denies fatigue Hematologic/Lymphatic: Hematologic/Lymphatic: Denies easy bleeding Allergic/Immunologic: Allergic/Immunologic: Denies GI upset with certain foods Exam Const: General: comfortable and no acute distress Other: Pleasant elderly lady sitting up in bed in no distress of any kind she is responsive and alert HENMT: Mouth: Yes moist mucous membranes Eyes: Sclera: sclerae normal Neck: Neck: supple and no JVD Other: carotid pulses are intact bilaterally no bruits are heard over the neck Resp: Effort & Inspection: normal respiratory effort Other: No wheezing Cardio: Rate: regular rate Rhythm: regular rhythm Other: very soft systolic murmur that does not radiate from the left sternal border. GI: Auscultation: normal bowel sounds Skin: General skin exam: normal color Neuro: Cranial nerves: Yes Normal hearing present Cognition (Neuro): normal cognition Other: Pleasant alert lady who is significantly demented as mentioned above Extrem: General: normal to inspection Objective Data Vital Signs Vital Signs: Vital Signs - 24 hr 03/30/20 10:30 03/30/20 10:35 03/30/20 11:00 Temperature Pulse Rate Respiratory Rate Blood Pressure 77/47 L 80/46 L 100/54 L Pulse Oximetry 03/30/20 12:00 03/30/20 14:00 03/30/20 16:00 Temperature 36.1 C L Pulse Rate 70 70 70 Respiratory Rate 18 Blood Pressure
--- NOTE | 2020-03-31 13:17 | PM.DS ---
DS: Admitting Diagnosis Admitting Diagnosis Admitting Diagnosis: Chief Complaint: generalized weakness+ DS: Discharge Diagnosis Discharge Diagnosis (1) Generalized weakness: Code(s): R53.1 - Weakness Status: Acute Assessment and Plan: The patient has been placed in observation status. (2) Appetite loss: Code(s): R63.0 - Anorexia Status: Acute Assessment and Plan: Pt passed swallow study (3) NSTEMI (non-ST elevated myocardial infarction): Code(s): I21.4 - Non-ST elevation (NSTEMI) myocardial infarction Status: Acute Assessment and Plan: Patient has evidence of NSTEMI with elevated troponins and abnormal EKG findings with Q-waves in anterior leads. Pt seen by cardiology, conservative approach, medications were adjusted. 03/30/20 15:48 03/27 12:04 patient is 84-year-old female with history of severe dementia ER resident of nursing was brought to the emergency department with generalized weakness poor appetite and fatigue patient was found to non STEMI with elevated tropes was seen by Cardiology and because of severe dementia and patient has no complaint of chest, it was decided the patient will be treated with medical management, patient had a cardiac echo showed ejection fraction of 25%, patient is seen by mechanical engineering technician today suspect most likely secondary to takotsubo cardiomyopathy, unfortunately patient unable to provide much review of symptom, is pleasantly confused, upon arrival patient had abnormal UA, growing E coli sensitive to Rocephin will continue, will continue the medical management and further recommendation to follow 03/28 patient was seen by her mechanical engineering technician and recommended one time dose of IV lasix will help with CHF as patient has significant cardiomyopathy with EF of 25%, will continue to monitor, patient will continue to participate in PT/OT before returning back to [place]. 03/29 today mechanical engineering technician started the patient on oral Lasix 20 mg q.day, patient is clinically stable denies any complaint of chest pain or shortness of breath, continue to work with PT OT, waiting for insurance authorization to discharge the patient to detention. 03/30, on 03/29 mechanical engineering technician started the patient on oral Lasix 20 mg q.day, today patient was hypotensive, however patient did not c/o CP, shortness of breath or dizziness, she was quite weak during PT that prompted to check he BP, was given 250ml NS bolus this help bring pressure, was seen by mechanical engineering technician and stopped lasix and lowered Corge to 3.25mg BID from 6.5mg BID. patient is clinically stable, will continue monitor and further recommendation to follow (4) Abnormal urinalysis: Code(s): R82.90 - Unspecified abnormal findings in urine Status: Acute Assessment and Plan: Awaiting UC, continue IV antibiotics for now. (5) Abnormal glucose: Code(s): R73.09 - Other abnormal glucose Status: Acute Assessment and Plan: Check hemoglobin A1c. (6) Leukocytosis: Qualifiers: Leukocytosis type: unspecified Qualified Code(s): D72.829 - Elevated white blood cell count, unspecified Code(s): D72.829 - Elevated white blood cell count, unspecified Status: Acute Assessment and Plan: Leukocytosis may be secondary to urinary tract infection versus sterile inflammation from NSTEMI. Monitor CBCD. (7) Hypokalemia: Code(s): E87.6 - Hypokalemia Status: Acute Assessment and Plan: Potassium was replaced in the emergency room today. We will monitor serum potassium and continue to replace as needed. (8) Dementia: Qualifiers: Dementia type: unspecified type Dementia behavioral disturbance: without behavioral disturbance Qualified Code(s): F03.90 - Unspecified dementia without behavioral disturbance Code(s): F03.90 - Unspecified dementia without behavioral disturbance Status: Chronic Assessment and Plan: Patient has advanced piedad
[2020-03-31 20:12] LABS: SARS-CoV-2 RNA PCR Negative
[2020-03-31] MEDS: DONEPEZIL HCL 10 MG TABLET PO (21:15)
[2020-04-01] VITALS: BP 102/51; PULSE 70; RESP 16; TEMP 36.6; O2SAT 98
== END 2020-04-01 02:00 | DRG 315 ==
LOC: ANHED 15:21 → ANH2MED 15:58 → ANHIMU 19:51 → ANH2MED 03-28 09:17 → ANHIMU 04-05 14:50
PROVIDERS: Emergency Medicine; Family Medicine; Admitting Provider Family Medicine; Emergency Provider Emergency Medicine; PCP Internal Medicine; Visit Provider Family Medicine
DX: I51.81 Takotsubo syndrome (principal); N39.0 Urinary tract infection, site not specified; B96.20 Unspecified Escherichia coli [E. coli] as the cause of diseases classified elsewhere; R63.0 Anorexia; Z20.822 Contact with and (suspected) exposure to COVID-19; R73.09 Other abnormal glucose; D72.829 Elevated white blood cell count, unspecified; E87.6 Hypokalemia; F03.90 Unspecified dementia, unspecified severity, without behavioral disturbance, psychotic disturbance, mood disturbance, and anxiety; I10 Essential (primary) hypertension; E78.5 Hyperlipidemia, unspecified
CPT/HCPCS: 36415; 70450; 71046; 80048; 80053; 80061; 81001; 83036; 83735; 84484; 85025; 85610; 85730; 87077; 87086; 87088; 87186; 92611; 93005; 93306; 96361; 96365; 96366; 96367; 97110; 97161; 97166; 97530; 97535; 99285; A9270; C8929; C9803; G0378; J0696; J1644; J1940; J7050; J7120; Q9957; U0003; U0005

== ENCOUNTER 2020-04-20 18:14 | Emergency (ER) | payer MEDICARE, SELFPAY ==
--- NOTE | ~2020-04-20 | CT_ITS ---
EXAMINATION: CT cervical spine wo con DATE: 04/20/2020 19:39 INDICATION: Neck pain after fall TECHNIQUE: Computed tomography (CT) of the cervical spine was performed without intravenous contrast. The dose-length product was 224 mGy-cm. Automated exposure control and iterative reconstruction tech judo were employed. COMPARISON: CT dated 02/05/2020 FINDINGS: Moderate-severe cervical spondylosis characterized by disc narrowing, endplate sclerosis an d marginal osteophytes. There is moderate multilevel facet and uncinate hypertrophy. Lung apices are normal. There is carotid atherosclerosis. No acute fracture or traumatic malalignment. No paraspinal soft tissue abnormality. The left lobe of the thyroid gland is enlarged and extends to the mediastinu m. There are multiple masses, largest measuring approximately 2.2 cm. Recommend further evaluation [facility] thyroid ultrasound as clinically indicated.. IMPRESSION: 1. No acute abnormality of the cervical spine. Reviewed, dictated and finalized at location A. COVER CUTTER
--- NOTE | ~2020-04-20 | CT_ITS ---
EXAMINATION: CT brain wo con DATE: 04/20/2020 19:38 INDICATION: Status post fall. Laceration. TECHNIQUE: Computed tomography (CT) of the head was performed without intravenous contrast. The dose- length product was 529.67 mGy-cm. Automated exposure control and iterative reconstruction technique w ere employed. COMPARISON: CT dated 03/25/2020 FINDINGS: Generalized atrophy. There are scattered moderate periventricular and subcortical white mat ter changes, most likely related to small vessel ischemic disease (microangiopathy). No ventriculomeg silas or midline shift. Basilar cisterns are patent. No acute intracranial hemorrhage, infarction, mass or mass effect. No midline shift. Paranasal sinuses and mastoids are pneumatized. Small right mastoi d effusion. No depressed skull fractures. IMPRESSION: 1. No acute intracranial abnormality. 2: Chronic age-related findings. Reviewed, dictated and finalized at location A. SCAPING SUPERVISOR
[2020-04-20 18:19] VITALS: BP 124/72; PULSE 74; RESP 18; TEMP 36.6; O2SAT 100
[2020-04-20 18:29] VITALS: BP 124/72; PULSE 74; RESP 18; TEMP 36.6; O2SAT 100
--- NOTE | 2020-04-20 19:19 | ED.HEATRA ---
HPI - Head Injury General Chief complaint: Head Injury Stated complaint: FALL/HEAD LAC Time Seen by Provider: 04/20/20 19:02 History of Present Illness HPI Narrative: 84 yo female w/ h/o dementia brought in from assisted living for a head injury. She had an unwitnessed fall. She was noted to have a laceration to the posterior scalp. She has not complaints at this time. She walks independently, but is confused at baseline. Her son is present and says that he believes she is at her baseline. History limited by dementia Related Data Home Medications Medication Instructions Recorded Confirmed allopurinol 300 mg PO DAILY 02/05/20 03/25/20 cholecalciferol (vitamin D3) 2,000 unit PO DAILY 02/05/20 03/25/20 [Vitamin D3] simvastatin 40 mg PO DAILY 02/05/20 03/25/20 albuterol sulfate [ProAir HFA] 2 puff INHALATION QID PRN 03/25/20 03/25/20 apixaban [Eliquis] mg 04/20/20 escitalopram oxalate 5 mg PO DAILY 04/20/20 Allergies Allergy/AdvReac Type Severity Reaction Status Date / Time No Known Allergies Allergy Verified 04/20/20 18:19 Review of Systems Review of Systems: ROS unobtainable: Yes unobtainable due to mental status Cardiovascular: Cardiovascular: Denies chest pain Respiratory: Respiratory: Denies dyspnea Musculoskeletal: Musculoskeletal: Denies back pain [facility] Past Medical History Medical History History of dementia History of hyperlipidemia History of hypertension Family History Family History Other Unknown family medical history Social History Social History Smoking status: Never smoker Alcohol intake: never Substance use: never Substance use type: does not use Gender identity (if verbalized by the patient): Female Spiritual care concerns: No Exam Const: General: healthy appearing, no acute distress, alert and confusion Other: Oriented x2 HENMT: Other: 2.5 cm posterior scalp laceration Eyes: Conjunctivae: conjunctivae normal Pupils: Equal, round and reactive pupils present EOM: EOMs intact bilaterally Neck: Neck: normal visual inspection Resp: Effort & Inspection: normal respiratory effort Auscultation: clear to auscultation bilaterally Cardio: Rate: regular rate Rhythm: regular rhythm GI: GI Palp: Yes Soft to palpation and No Tenderness to palpation present (GI) Back/Spine/Pelvis: Other: nontender Skin: General skin exam: normal color Neuro: General: moves all extremities and no focal motor deficits Cranial nerves: Yes CN's II-XII intact bilaterally Speech: normal speech Other: oriented x2 Extrem: General: normal to inspection Course Vital Signs Vital signs: Vital Signs Temperature 36.6 C 04/20/20 18:19 Pulse Rate 74 04/20/20 18:19 Respiratory Rate 18 04/20/20 18:19 Blood Pressure 124/72 04/20/20 18:19 Pulse Oximetry 100 04/20/20 18:19 Temperature 36.4 C L 04/20/20 21:06 Pulse Rate 72 04/20/20 21:06 Respiratory Rate 16 04/20/20 21:06 Blood Pressure 124/78 04/20/20 21:06 Pulse Oximetry 98 04/20/20 21:06 Procedures Laceration Laceration 1: Date: 04/20/20 Site: scalp Size (cm): 2.5 Description: linear Depth: simple, single layer Local Anesthetic: none Pre-repair: wound explored and irrigated ====== Skin Level ====== Skin layer closed with: jaswinder Number of sutures: 3 ====== Subcutaneous Layer ====== ====== Muscle Layer ====== ====== Tendon Layer ====== MDM - Head Injury MDM Narrative Medical decision making narrative: CT negative. patient at baseline. Reassuring labs. Differential Diagnosis Differential diagnosis: Likely concussion without loss of consciousness, subarachnoid hematoma, subdural hematoma and other (UTI) Medical Records Attestation: I rev
[2020-04-20 20:06] LABS: Basophils Percent Auto 0.4 % (0.2-1.2); Eosinophils Absolute Auto 0.2 K/mm3 (0-0.3); Eosinophils Percent Auto 3.4 % (0-4.4); Hematocrit 38.7 % (37.0-47.0); Hemoglobin 12.9 g/dL (12.0-15.0); Immature Granulocyte Absolute 0.02 K/mm3 (0.00-0.031); Immature Granulocyte Percent A 0.4 % (0-0.5); Lymphocytes Absolute Auto 1.62 K/mm3 (0.9-3.2); Lymphocytes Percent Auto 32.1 % (18.3-44.2); Mean Corpuscular HGB Conc 33.3 g/dl (32-36); Mean Corpuscular Hemoglobin 31.5 pg (26-34); Mean Corpuscular Volume 94.6 fl (80-100); Monocytes Absolute Auto 0.5 K/mm3 (0.1-0.6); Monocytes Percent Auto 10.3 % (2.6-8.5); Neutrophils Absolute Auto 2.7 K/mm3 (1.3-6.7); Neutrophils Percent Auto 53.4 % (45.5-73.1); Platelet Count Result 238 k/mm3 (150-375); Red Blood Count 4.09 M/mm3 (4.2-5.4)
[2020-04-20 20:17] LABS: Add Urine Microscopic? YES; Appearance Urine Clear (Clear); Bilirubin Urine Negative (Negative); Blood Urine Negative (Negative); Color Urine Yellow (Yellow); Glucose Urine UA Negative (Negative); Ketones Urine Negative (Negative); Leukocyte Esterase Ur Negative LEU/UL (Negative); Mucus Urine Moderate /lpf; Nitrate Urine Negative (Negative); Protein Urine 1+ mg/dL (Negative); Specific Grav Ur 1.017 (1.001-1.035); Squamous Epithelial Cell Urine Rare /hpf (Few); Urobilinogen Urine Negative mg/dL (<2.0); WBC Urine 0-3 /hpf
[2020-04-20 20:18] LABS: INR 1.2; Partial Thromboplastin Time 34.8 SECONDS (22.3-36.8); Prothrombin Time 16.2 Seconds (11.1-14.7)
[2020-04-20 20:33] LABS: Alanine Aminotransferase 22 U/L (4-35); Albumin Level 3.4 g/dL (3.5-5.1); Alkaline Phosphatase 86 U/L (38-126); Anion Gap 6 mmol/L (8-16); Aspartate Amino Transferase 37 U/L (14-36); Bilirubin,Total 0.6 mg/dL (0.2-1.3); Blood Urea Nitrogen 15 mg/dL (7-17); Carbon Dioxide 26 mmol/L (22-30); Chloride 104 mmol/L (98-107); Estimated CRCL calculation 36 ml/min; Estimated Glomerular Filt Rate 60; Glucose 99 mg/dL (65-105); Potassium 4.4 mmol/L (3.4-5.0); Sodium 136 mmol/L (137-145)
[2020-04-20 20:38] VITALS: BP 121/75; PULSE 71; RESP 16; O2SAT 100
[2020-04-20 21:06] VITALS: BP 124/78; PULSE 72; RESP 16; TEMP 36.4; O2SAT 98
== END 2020-04-20 21:11 ==
PROVIDERS: Emergency Provider Emergency Medicine; PCP Internal Medicine
DX: S01.01XA Laceration without foreign body of scalp, initial encounter (principal); F03.90 Unspecified dementia, unspecified severity, without behavioral disturbance, psychotic disturbance, mood disturbance, and anxiety; E78.5 Hyperlipidemia, unspecified; I10 Essential (primary) hypertension; W19.XXXA Unspecified fall, initial encounter; Z79.01 Long term (current) use of anticoagulants
CPT/HCPCS: 12001; 36415; 51701; 70450; 72125; 80053; 81001; 85025; 85610; 85730; 99284